=== PATIENT | female | born 1960 | race Caucasian/White ===

== ENCOUNTER 2025-07-05 13:04 | Emergency (ER) | payer MEDICAID, SELFPAY ==
[2025-07-05] VITALS (7 sets, daily range): BP systolic 110–138; BP diastolic 58–71; PULSE 73–112; RESP 16–96; TEMP 36.8–39.6; O2SAT 95–97; BMI 44.8
--- NOTE | 2025-07-05 13:07 | XR_ITS ---
EXAMINATION: AP chest single view TECHNIQUE: AP portable semiupright chest single view Date and time: July 05, 2025, 1348 hours INDICATIONS: Sepsis alert FINDINGS: Mild heart failure Mild enlargement cardiac contour Prominent vascular congestion. No lobar pneumonia. The osseous structures are demineralized IMPRESSION: Suspicious for early heart failure. No lobar pneumonia
--- NOTE | 2025-07-05 13:07 | EKG_ITS ---
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
[2025-07-05] MEDS: ACETAMINOPHEN IVPB 1,000 MG/100 ML VIAL 250 MG IV (13:25)
[2025-07-05] MEDS: RINGERS LACTATED 1000 ML 1,000 ML 999 ML IV (13:29)
--- NOTE | 2025-07-05 13:29 | EDNOTE_ITS ---
<Statement entered by Kim Lam MD - 07/11/25 14:47> As co-signing physician, I was present and available for consult prn. I concur with the plan and care as documented by the midlevel provider. ED General RME/HPI General Chief complaint: Fever Stated complaint: FEVER CHILLS Time Seen by Provider: 07/05/25 13:06 Arrival date/time: 07/05/25 13:04 CC: Weakness fever HPI onset 48 hours ago. No other family members are ill. Patient denies cough nausea vomiting, or chest pain. Took ibuprofen without relief. EMS report temperature of 102 tachycardic otherwise stable blood pressure. Related Data Home Medications ?Medication ?Instructions ?Recorded ?Confirmed amlodipine 10 mg tablet 10 mg PO QDAY ##0 11/06/13 0 02/25/20 ibuprofen 800 mg tablet 800 mg PO TID PRN Pain ##0 0 11/06/13 02/25/20 oxybutynin chloride 10 mg 10 mg PO BID ##0 03/15/16 tablet,extended release 24 hr furosemide 40 mg tablet (Lasix) 80 mg PO QAM #0 tabs 0 09/14/16 02/25/20 lisinopril 20 mg tablet 10 mg PO QDAY #0 tabs 02/25/20 albuterol sulfate 90 mcg/actuation 2 puff inhalation Q 6H 02/06/18 02/25/20 aerosol inhaler (Ventolin HFA) amitriptyline 50 mg tablet 50 mg PO HS 02/06/18 aspirin 81 mg tablet,delayed 81 mg PO QDAY 02/06/18 release (Wilda Low Dose Aspirin) citalopram 20 mg tablet 40 mg PO HS 02/06/18 0 hydroxyzine HCl 25 mg tablet 50 mg PO TID PRN Itching 02/06/18 02/25/20 loratadine 10 mg tablet (Loradamed) 10 mg PO QDAY 05/3 02/25/20 methocarbamol 500 mg tablet 500 mg PO Q6H 02/06/18 mirtazapine 45 mg tablet (Remeron) 45 mg PO HS 8 02/25/20 nitroglycerin 0.4 mg sublingual 1 tab buccal Q5MIN PRN Chest Pain 08/10/19 02/25/20 tablet atorvastatin 20 mg tablet 20 mg PO QPM 02/25/20 donepezil 5 mg tablet 5 mg PO QDAY 02/25/20 fluticasone 100 mcg-salmeterol 50 1 inh inhalation BID 02/25/20 02/25/20 mcg/dose blistr powdr for inhalation metoprolol succinate 100 mg 100 mg PO QDAY 02/25/20 tablet,extended release 24 hr omeprazole 20 mg tablet,delayed 20 mg PO QDAY 02/25/20 02/25/20 release terazosin 10 mg capsule 10 mg PO DAILY 02/25/2002/08 Previous Rx's ?Medication ?Instructions ?Recorded ondansetron HCl 4 mg tablet 4 mg PO Q8H PRN nausea and 02/26/20 (Zofran) vomiting #10 tabs azithromycin 250 mg tablet See Rx Instructions PO .COM PLEX #6 03/06/21 (Zithromax Z-Carmelo) tabs cephalexin 500 mg capsule 500 mg PO QID #20 caps 11/26 ciprofloxacin HCl 500 mg tablet 500 mg PO BID #14 tabs 07/05/25 (Cipro) Allergies Allergy/AdvReac Type Severity Reaction Status Date / Time diphenhydramine Allergy Severe CARDIAC Verified 02/25/20 20:52 ARREST fluoxetine (From Prozac) Allergy Unknown Verified 03/06/21 05:31 aripiprazole AdvReac Intermediate I DON'T Verified 02/25/20 20:52 WANT TO FUNCTION meclizine AdvReac Intermediate Drowsy Verified 02/25/20 20:52 Review of Systems Review of Systems Narrative Review of Systems: GEN: + fever, no chills, no weight loss EYES: No discharge, no visual changes, no pain HEENT: No ear pain, no congestion, no sore throat PULM: No shortness of breath, no cough, no congestion CV: No chest pain, no dyspnea on exertion, no palpitations GI: No nausea, no vomiting, no diarrhea, no pain, no constipation : No frequency, no urgency, no dysuria MUSC/SKEL: No joint pain, no back pain SKIN: No rash PSYCH: No hallucinations, no depression HEME/LYMPH: No easy bleeding or bruising tendencies NEURO: No weakness, no headache Past Medical History Past Medical History CARDIAC: Positive Cardiac Disorders, Congestive Heart Failure and Hypertension RESPIRATORY: Positive Chronic Obstructive Pulmonary Disease (COPD) and Asthma GASTROINTESTINAL: Positive Gastroesophageal Reflux Disease GENITOURINARY: Negative Renal Disease MUSCULOSKELETAL: Negative Musculoskeletal Disorders ENDOCRINE: Positive Endocrine Disorders, Diabetes Mellitus Type 1 and Diabetes Mellitus Type 2 HEMATOLOGIC: Negative Sickle Cell Disease PSYCHO/SOCIAL: Positive Psychiatric Problems, Bipolar Disorder, Depression and Anxiety OTHER HISTORY: Negative Autoimmune Disease Family History FAMILY HISTORY: Positive Family Respiratory Disorders, Family Cardiac Disorders, Family Gastrointestinal Problems, Family Cancer and Family Surgery Surgical History SURGICAL: Positive Abdominal Surgery, Hysterectomy and Tubal Ligation Social History SMOKING STATUS: Never smoker SUBSTANCE USE: does not use ED Exam Narrative Physical exam: [General: Morbidly obese not in any acute distress Head normocephalic HEENT: Eyes pupils are PERRLA EOMs are intact mouth pink dry membranes uvula is midline swallow symmetrical phonation is normal all of the subsystems of HEENT are within acceptable limits Neck is supple nontender Chest equal chest rise nontender to palpation Respiratory: Clear to auscultation no wheezes crackles or rubs CV: Rate rhythm is regular no murmurs rubs or clicks Abdomen is grossly distended secondary to body habitus soft nontender no masses positive bowel sounds all 4 quadrants Back: No CVA tenderness no spinous process tenderness from cervical spine thoracic and lumbar spine Skin: Intact no petechiae rash induration ulceration or crepitus Extremities: Moving all extremity against resistance cap refill less than 2 seconds neurosensory intact Neuro: Awake alert oriented x3 Glascow coma 15 no focal deficits] Course Quality Measures none Orders Category Date Time Status Bedside COVID-19 Antigen Test NOW Care 07/05/25 13:07 Completed Manager Outreach STAT Care 07/05/25 13:07 Completed Continuous Pulse Oximetry STAT Care 07/05/25 13:07 Completed EKG (ED ONLY) *Do not use* NOW Care 07/05/25 13:07 Completed In and Out Catheter X1PRN Care 07/05/25 13:07 Completed Insert IV NOW Care 07/05/25 13:07 Completed NPO STAT Care 07/05/25 13:07 Completed Strict Intake and Output Routine Care 07/05/25 13:07 Ordered EKG (ED Only) Stat Exams 07/05/25 13:07 Draft XR chest 1V SEPSIS PROTOCOL Stat Exams 07/05/25 13:07 Completed B-Type Natriuretic Peptide Stat Lab 07/05/25 13:34 Completed Blood Culture (Lab) Stat Lab 07/05/25 13:34 Received CBC Stat Lab 07/05/25 13:34 Completed Comprehensive Metabolic Panel Stat Lab 07/05/25 13:34 Completed Influenza A & B Rapid Panel Stat Lab 07/05/25 13:47 Completed LDH (Lactate Dehydrogenase) Stat Lab 07/05/25 13:34 Completed Lactate (Lactic Acid) Stat Lab 07/05/25 13:34 Completed Lipase Stat Lab 07/05/25 13:34 Completed Magnesium Stat Lab 07/05/25 13:34 Completed Partial Thromboplastin Time Stat Lab 07/05/25 13:34 Completed Phosphorous Stat Lab 07/05/25 13:34 Completed Procalcitonin Stat Lab 07/05/25 13:34 Completed Prothrombin Time with INR Stat Lab 07/05/25 13:34 Completed Troponin I Stat Lab 07/05/25 13:34 Completed Urinalysis, C/S if Indicated Stat Lab 07/05/25 14:00 Completed Urine Culture Stat Lab 07/05/25 14:00 Received Acetaminophen Ivpb [Ofirmev Inj] Med 07/05/25 13:09 Discontinued 1,000 mg in 100 ml IV NOW Ringers Lactated 1000 ml [Lactated Ringers] 1,000 ml Med 07/05/25 13:07 Discontinued IV 999 mls/hr cefTRIAXone/D5w 1gm IV premix [Rocephin/D5w 1gm IV Med 07/05/25 15:52 Discontinued premix] 1 gm in 50 ml IV X1 Oxygen Delivery NOW RT 07/05/25 13:07 Completed Vital Signs Vital signs: Vital Signs Temperature 103.2 F H 07/05/25 13:10 Pulse Rate 111 H 07/05/25 13:10 Respiratory Rate 20 07/05/25 13:10 Blood Pressure 125/69 07/05/25 13:10 Pulse Oximetry (%) 96 07/05/25 13:10 Oxygen Delivery Method Room Air 07/05/25 13:10 Discharge Plan Plan Patient Disposition: HOME (Self Care) Patient condition on transfer: Stable Prescriptions/Referrals Prescriptions/Med Rec: New ciprofloxacin HCl [Cipro] 500 mg tablet 500 mg PO BID Qty: 14 0RF No Action ibuprofen 800 MG tablet 800 mg PO TID PRN (Reason: Pain) Qty: 0 amlodipine 10 mg Tablet 10 mg PO QDAY Qty: 0 oxybutynin chloride 10 mg Tablet Extended Release 24 Hr 10 mg PO BID Qty: 0 furosemide [Lasix] 40 MG tablet 80 mg PO QAM Qty: 0 lisinopril 20 MG tablet 10 mg PO QDAY Qty: 0 methocarbamol 500 mg Tablet 500 mg PO Q6H aspirin [Wilda Low Dose Aspirin] 81 mg Tablet,Delayed Release (Dr/Ec) 81 mg PO QDAY amitriptyline 50 mg Tablet 50 mg PO HS citalopram 20 mg Tablet 40 mg PO HS mirtazapine [Remeron] 45 mg Tablet 45 mg PO HS hydroxyzine HCl 25 mg Tablet 50 mg PO TID PRN (Reason: Itching) loratadine [Loradamed] 10 mg Tablet 10 mg PO QDAY albuterol sulfate [Ventolin HFA] 90 mcg/actuation Hfa Aerosol Inhaler 2 puff INHALATION Q6H nitroglycerin 0.4 mg Tablet, Sublingual 1 tab BUCCAL Q5MIN PRN (Reason: Chest Pain) terazosin 10 mg Capsule 10 mg PO DAILY atorvastatin 20 mg Tablet 20 mg PO QPM donepezil 5 mg Tablet 5 mg PO QDAY fluticasone propion-salmeterol 100-50 mcg/dose Blister With Device 1 inh INHALATION BID omeprazole 20 mg Tablet,Delayed Release (Dr/Ec) 20 mg PO QDAY metoprolol succinate 100 mg Tablet Extended Release 24 Hr 100 mg PO QDAY ondansetron HCl [Zofran] 4 mg tablet 4 mg PO Q8H PRN (Reason: nausea and vomiting) Qty: 10 0RF azithromycin [Zithromax Z-Carmelo] 250 mg tablet See Rx Instructions .ROUTE .COMPLEX Qty: 6 0RF Rx Instructions: take 500 mg today (day 1), then 250 mg for 4 days (days 2-5) cephalexin 500 mg capsule 500 mg PO QID Qty: 20 0RF Referrals: Serafin Murphy MD [Primary Care Provider] - In 1 week Problem List Clinical Impression: Fever, Urinary tract infection Patient/Caregiver Discharge Instructions Education Materials: ED CYSTITIS Female Adult Additional Instructions: Take the medications as prescribed till completely gone use Tylenol or ibuprofen for fever if there is worsening of symptoms return the emergency room for further evaluation. Print Language: Luxembourgish Stand Alone Forms: Tasha Award Info., Patient Portal Info Letter JEISON/ARABELLA Supervising Physician KAVON Supervising Physician: Milo Villasenor ENP MDM Clinical Information Provided by: patient and EMS Medical Records reviewed [facility] and EMS Meds/Rx considered, not ordered None Labs/Rad/Tests considered, not ordered None Chronic Illness/Social Conditions Explain: Diabetes hypertension COPD chronic congestive heart failure bladder mesh procedure hysterectomy abdominal wall hernia repair with mesh. EKG Interpretation EKG #1: EKG Interpretation: EKG performed at 1332 shows a ventricular rate of 107 [place] interval 128 QRS of 96 QTc of 411 sinus tachycardia. Labs Labs: interpreted by me Imaging Imaging interpretation: interpreted by me Medication Administration(s) Medication Administration History Discontinued Medications Lactated Ringer's (Lactated Ringers) 1,000 mls @ 999 mls/hr IV .Q1H1M ONE Stop: 07/05/25 14:07 Last Infusion: 07/05/25 15:12 Dose: Infused Documented By: Admin: 07/05/25 13:29 Dose: 999 mls/hr Documented By: RHONDA Acetaminophen (Ofirmev Inj) 1,000 mg in 100 mls @ 250 mls/hr IV NOW ONE Stop: 07/05/25 13:32 Last Infusion: 07/05/25 13:54 Dose: Infused Documented By: Admin: 07/05/25 13:25 Dose: 250 mls/hr Documented By: RHONDA Ceftriaxone Sodium/Dextrose (Rocephin/D5w 1gm Iv Premix) 1 gm in 50 mls @ 100 mls/hr IV X1 ONE Stop: 07/05/25 16:21 Last Infusion: 07/05/25 17:23 Dose: Infused Documented By: Admin: 07/05/25 16:46 Dose: 100 mls/hr Documented By: RHONDA
[2025-07-05 13:39] LABS: Lactate (Lactic Acid) 1.4 mMol/L (0.4-2.0)
[2025-07-05 13:49] LABS: Basophils # (Auto) 0.0 Thou/mm3 (0.0-0.2); Basophils % (Auto) 0 % (0-2.5); Eosinophils # (Auto) 0.1 Thou/mm3 (0.0-0.5); Eosinophils % (Auto) 1 % (0-10); Hematocrit 37.9 % (36.0-46.0); Hemoglobin 12.2 g/dL (12.0-16.0); Immature Granulocytes Auto 0.04 Thou/mm3 (0.00-0.00); Lymphocytes # (Auto) 0.5 Thou/mm3 (1.0-4.8); Lymphocytes % (Auto) 5 % (10-50); Mean Corpuscular HGB Conc 32.2 g/dl (31.0-37.0); Mean Corpuscular Hemoglobin 27.8 pg (25.0-35.0); Mean Corpuscular Volume 86 fL (80-100); Monocytes # (Auto) 0.2 Thou/mm3 (0.0-0.8); Monocytes % (Auto) 2 % (0-12); Neutrophils # (Auto) 9.9 Thou/mm3 (1.8-7.7); Neutrophils % (Auto) 92 % (37-80); Nucleated Red Blood Cell # 0.00 Thou/mm3 (0.00-0.00); Nucleated Red Blood Cell % 0 /100 WBC (0); Platelet Count 190 Thou/mm3 (140-440); RDW Standard Deviation 43.1 fL (36.4-46.3); Red Blood Count 4.39 Miln/mm3 (4.00-5.20); White Blood Count 10.8 Thou/mm3 (3.6-11.0)
[2025-07-05 14:03] LABS: INR 1.1 (0.9-1.3); Partial Thromboplastin Time 25.1 Seconds (22.0-36.0); Prothrombin Time 11.4 Seconds (9.0-12.2)
[2025-07-05 14:11] LABS: B-Type Natriuretic Peptide 40 pg/mL (0-100)
[2025-07-05 14:14] LABS: Albumin, Serum 4.7 gm/dL (3.4-4.8); Albumin/Globulin Ratio 2.0 (1.2-2.2); Alkaline Phosphatase 87 U/L (46-116); Anion Gap 12 (7-16); Aspartate Amino Transferase 16 U/L (0-34); BUN/Creatinine Ratio 15 Ratio (12-20); Bilirubin,Total 1.4 mg/dL (0.3-1.2); Blood Urea Nitrogen 20 mg/dL (9-23); Calcium 9.5 mg/dL (8.3-10.6); Calcium (Corrected) 9.5 mg/dL (8.5-10.1); Carbon Dioxide 22.3 mMol/L (20.0-31.0); Chloride 108 mMol/L (98-107); Creatinine (Component) 1.3 mg/dL (0.6-1.3); Estimated Creatinine Clearance 62.1 mL/min (>60); Globulin 2.3 gm/dL (2.3-3.5); Glucose 129 mg/dL (74-106); LDH (Lactate Dehydrogenase) 173 U/L (120-246); Lipase 29 U/L (12-53); Magnesium 1.5 mg/dL (1.6-2.6); Osmolality,Calculated 287 (275-295); Phosphorous 2.0 mg/dL (2.4-5.1); Potassium 4.0 mMol/L (3.4-5.1); Sodium 142 mMol/L (136-145); Total Protein 7.0 gm/dL (5.7-8.2); Troponin I < 0.002 ng/mL (0.0-0.045); eGFR 46 See Note
[2025-07-05 14:23] LABS: Alanine Aminotransferase 8 U/L (10-49); Procalcitonin 0.63 ng/ml (0.0-0.49)
[2025-07-05 14:31] LABS: Collection Type, Urine Clean Catch
[2025-07-05 14:46] LABS: Influenza A Ag Negative; Influenza B Ag Negative
[2025-07-05 14:57] LABS: Bacteria,Urine 3+; Bilirubin,Urine Negative (Negative); Blood,Urine Trace (Negative); Clarity,Urine Turbid (Clear/Hazy); Color,Urine Yellow (Lt Yel-Yel); Glucose, Urine Negative (Negative); Ketones,Urine Trace (Negative); Leukocyte Esterase,Urine Positive (Negative); Nitrite,Urine Positive (Negative); PH,Urine 6.0 (5.0-7.0); Protein,Urine Trace (Neg - Trace); RBC,Urine 1 /hpf (0-3); Specific Gravity,Urine 1.022 (1.001-1.035); Squamous Epithelial Cell,Urine 1 /hpf (0-5); Urobilinogen,Urine Negative mg/dL (0.0-1.0); WBC,Urine 34 /hpf (0-5)
[2025-07-05 14:58] LABS: Culture Indicated,Urine Yes
[2025-07-05] MEDS: cefTRIAXone/D5w 1gm IV premix 1 GM/50 ML BAG IV (16:46)
== END 2025-07-05 17:46 | disposition home or self-care (01) ==
PROVIDERS: Registered Nurse General Practice; Emergency Provider Emergency Medicine; PCP Family Medicine
DX: N30.90 Cystitis, unspecified without hematuria (principal); E11.9 Type 2 diabetes mellitus without complications; I11.0 Hypertensive heart disease with heart failure; J44.9 Chronic obstructive pulmonary disease, unspecified; Z79.51 Long term (current) use of inhaled steroids
CPT/HCPCS: 36415; 51701; 71045; 80053; 81001; 83605; 83615; 83690; 83735; 83880; 84100; 84145; 84484; 85025; 85610; 85730; 87040; 87077; 87086; 87186; 87502; 87811; 93005; 99284; J0131; J0696; J7120

== ENCOUNTER 2025-08-29 09:49 | Emergency (ER) | payer MEDICAID, SELFPAY ==
[2025-08-29 10:07] VITALS: BP 160/95; PULSE 87; RESP 20; TEMP 36.8; O2SAT 96; BMI 45.4
--- NOTE | 2025-08-29 10:28 | XR_ITS ---
Examination: Abdomen sonogram, Limited Date and time of exam: August 29, 2025, 11:25 a.m. INDICATIONS: Epigastric pain abdominal pain nausea vomiting beginning 2 days ago Technique: Real-time whitaker scale transabdominal sonographic images of the upper abdomen obtained. Findings: Normal gallbladder Normal common bile duct 0.5 cm Pancreatic head 3.0 cm Liver 14.5 cm fatty infiltration no focal liver lesions Normal hepatopetal portal venous flow Patent IVC IMPRESSION: Normal gallbladder Normal common bile duct
--- NOTE | 2025-08-29 10:30 | PD.EDNV ---
Nausea/Vomit./Diarrhea-RME/HPI General Chief complaint: Nausea/Vomiting/Diarrhea Stated complaint: Vomiting since last night, abdominal pain Time Seen by Provider: 08/29/25 10:05 Arrival date/time: 08/29/25 09:49 This is a 65-year-old female that comes into the emergency room with complaints of abdominal pain nausea vomiting that started last night. Patient denies fever or chills. Patient denies urinary symptoms but more of her pain seems to be in her right flank. Patient states that she was recently treated for a UTI not too long ago. Patient has a history of depression, anxiety, bipolar disorder, COPD, CHF. Related Data Home Medications ?Medication ?Instructions ?Recorded ?Confirmed ibuprofen 800 mg tablet 800 mg PO TID PRN Pain ##0 11/06/13 08/30/25 oxybutynin chloride 10 mg 10 mg PO BID ##0 03/15/16 08/30/25 tablet,extended release 24 hr furosemide 40 mg tablet (Lasix) 40 mg PO QAM #0 tabs 09/14/16 08/30/25 albuterol sulfate 90 mcg/actuation 2 puff inhalation Q6H 02/06/18 08/30/25 aerosol inhaler (Ventolin HFA) aspirin 81 mg tablet,delayed 81 mg PO QDAY 02/06/18 08/30/25 release (Wilda Low Dose Aspirin) hydroxyzine HCl 25 mg tablet 50 mg PO TID PRN Itching 02/06/18 08/30/25 loratadine 10 mg tablet (Loradamed) 10 mg PO QDAY 02/06/18 08/30/25 mirtazapine 45 mg tablet (Remeron) 45 mg PO HS 02/06/18 08/30/25 nitroglycerin 0.4 mg sublingual 1 tab buccal Q5MIN PRN Chest Pain 08/10/19 08/30/25 tablet atorvastatin 20 mg tablet 40 mg PO QPM 02/25/20 08/30/25 donepezil 5 mg tablet 5 mg PO QDAY 02/25/20 08/30/25 metoprolol succinate 100 mg 100 mg PO QDAY 02/25/20 08/30/25 tablet,extended release 24 hr omeprazole 20 mg tablet,delayed 20 mg PO QDAY 02/25/20 08/30/25 release terazosin 10 mg capsule 10 mg PO DAILY 02/25/20 08/30/25 diclofenac sodium 1 % topical gel 2 g topical QID PRN pain 08/30/25 08/30/25 docusate sodium 100 mg capsule 100 mg PO QDAY PRN constipation 08/30/25 08/30/25 ergocalciferol (vitamin D2) 1,250 1,250 mcg PO QWEEK 08/30/25 08/30/25 mcg (50,000 unit) capsule escitalopram oxalate 10 mg tablet 10 mg PO QDAY 08/30/25 08/30/25 meloxicam 7.5 mg tablet 7.5 mg PO QDAY 08/30/25 08/30/25 montelukast 10 mg tablet 10 mg PO QDAY 08/30/25 08/30/25 sertraline 100 mg tablet 100 mg PO QDAY 08/30/25 08/30/25 Previous Rx's ?Medication ?Instructions ?Recorded polyethylene glycol 3350 17 4 g PO QDAY #238 grams 09/01/25 gram/dose oral powder (Miralax) Allergies Allergy/AdvReac Type Severity Reaction Status Date / Time diphenhydramine Allergy Severe CARDIAC Verified 08/29/25 09:54 ARREST fluoxetine (From Prozac) Allergy Unknown Verified 08/29/25 09:54 aripiprazole AdvReac Intermediate I DON'T Verified 08/29/25 09:54 WANT TO FUNCTION meclizine AdvReac Intermediate Drowsy Verified 08/29/25 09:54 Review of Systems Review of Systems Systems Reviewed: All systems reviewed, normal except as documented Past Medical History Past Medical History CARDIAC: Positive Cardiac Disorders, Congestive Heart Failure and Hypertension RESPIRATORY: Positive Chronic Obstructive Pulmonary Disease (COPD) and Asthma GASTROINTESTINAL: Positive Gastroesophageal Reflux Disease GENITOURINARY: Negative Renal Disease MUSCULOSKELETAL: Negative Musculoskeletal Disorders ENDOCRINE: Positive Endocrine Disorders, Diabetes Mellitus Type 1 and Diabetes Mellitus Type 2 HEMATOLOGIC: Negative Sickle Cell Disease PSYCHO/SOCIAL: Positive Psychiatric Problems, Bipolar Disorder, Depression and Anxiety OTHER HISTORY: Negative Autoimmune Disease Family History FAMILY HISTORY: Positive Family Respiratory Disorders, Family Cardiac Disorders, Family Gastrointestinal Problems, Family Cancer and Family Surgery Surgical History SURGICAL: Positive Abdominal Surgery, Hysterectomy and Tubal Ligation Social History SMOKING STATUS: Never smoker SUBSTANCE USE: does not use ED Exam Narrative Physical exam: VITAL SIGNS: Reviewed. GENERAL APPEARANCE: Alert and interactive, follows commands, no acute distress HEAD AND FACE: Non-traumatic. ENT: PERRL, conjuctiva pink and clear, eyelid no trauma, Mucous membrane moist. NECK: Supple, nontender, no nuchal rigidity. CHEST: No tenderness, no crepitus, no paradoxical movement, no retractions. LUNGS: breathing even and unlabored HEART: Regular rate, cap refill less than 2 seconds ABDOMEN: Soft, nondistended, no guarding, nontender to palpation NEUROLOGICAL: Gross motor function intact sensory function intact, Appropriate for age. MUSCULOSKELETAL: low back nontender, full range of motion. EXTREMITIES: No redness no swelling no skin breakdown on bilateral foot and leg. Distal neurovascular status intact bilateral foot SKIN: Color pink, dry, no rash, no lacerations, no abrasions, no contusions. Course Quality Measures none Orders Category Date Time Status US abdomen limited Stat Exams 08/29/25 10:28 Completed CBC Stat Lab 08/29/25 11:06 Completed Comprehensive Metabolic Panel Stat Lab 08/29/25 11:06 Completed Drug Screen,Urine Stat Lab 08/29/25 10:36 Completed Lipase Stat Lab 08/29/25 11:06 Completed Urinalysis, C/S if Indicated Stat Lab 08/29/25 10:36 Completed HYDROcodone*/APAP 5/325 [[place] 5/325] Med 08/29/25 10:28 Discontinued 1 tab PO X1 ONE HYDROcodone*/APAP 5/325 [[place] 5/325] Med 08/29/25 13:45 Discontinued 1 tab PO X1 ONE Ondansetron Odt [Zofran Odt] Med 08/29/25 10:28 Discontinued 4 mg PO X1 ONE Ondansetron Odt [Zofran Odt] Med 08/29/25 13:45 Discontinued 4 mg PO X1 ONE Vital Signs Vital signs: Vital Signs Temperature 98.3 F 08/29/25 10:07 Pulse Rate 87 08/29/25 10:07 Respiratory Rate 20 08/29/25 10:07 Blood Pressure 160/95 H 08/29/25 10:07 Pulse Oximetry (%) 96 08/29/25 10:07 Oxygen Delivery Method Room Air 08/29/25 10:07 Nausea/Vomiting/Diarrhea MDM Narrative MDM Narrative:: us abdomen Findings: Normal gallbladder Normal common bile duct 0.5 cm Pancreatic head 3.0 cm Liver 14.5 cm fatty infiltration no focal liver lesions Normal hepatopetal portal venous flow Patent IVC IMPRESSION: Normal gallbladder Normal common bile duct Today patient had ultrasound. Exam appeared unremarkable. I explained to patient at length that if there was continued pain to this area or worsened to come back to ED or see primary provider for more xrays or further testing such as CT scan or MRI. ultrasounds are not perfect and sometimes serial films needed. Patient verbalized understanding. Patient states they will follow up with primary provider in 1-2 days or come back to ED if symptoms change or worsen. Because nothing was found in this ultrasound and labs for the most part are unremarkable I did talk to patient about a CT scan of abdomen and pelvis. At this time patient states she feels better and she would like to go home patient reports that she does not want a CT scan at this time and she will come back to the emergency room if her symptoms change or worsen and at that time she will get a CT scan of her abdomen and pelvis. Patient was given [place] and Zofran earlier and feels better. Patient verbalized understanding and feels comfortable plan of care. Patient data External records reviewed:: [facility] previous records Clinical information provided by:: patient Social determinants that could affect healthcare access:: none Patient has the following chronic illnesses:: see note How is presenting disease/condition affected by chronic disease/condition?: no chronic disease Evaluation data The following diagnostics were reviewed and interpreted by me:: lab results and radiology exam(s) Lab and/or radiology exams considered but not ordered:: see note Interpretation Summary: see note Medications / Prescriptions Medications / Prescriptions considered but not ordered:: see note Medication administrations:: Medication Administration History Discontinued Medications Hydrocodone Bitart/Acetaminophen (Hydrocodone/Apap 5/325 Tablet) 1 tab PO X1 ONE Stop: 08/29/25 10:29 Last Admin: 08/29/25 10:39 Dose: 1 tab Documented By: LIV Hydrocodone Bitart/Acetaminophen (Hydrocodone/Apap 5/325 Tablet) 1 tab PO X1 ONE Stop: 08/29/25 13:46 Last Admin: 08/29/25 13:59 Dose: 1 tab Documented By: LIV Ondansetron HCl (Ondansetron Odt 4 Mg Tabrap) 4 mg PO X1 ONE; Protocol Stop: 08/29/25 10:29 Last Admin: 08/29/25 10:39 Dose: 4 mg Documented By: LIV Ondansetron HCl (Ondansetron Odt 4 Mg Tabrap) 4 mg PO X1 ONE; Protocol Stop: 08/29/25 13:46 Last Admin: 08/29/25 13:58 Dose: 4 mg Documented By: LIV see [facility] Consultations Consultation(s) initiated? (list below): No Diagnosis Nausea Differential Diagnosis: gastroenteritis, dehydration and other (bowel obstruction, uti, cholecyctitis ) Most likely diagnosis given after review of the tests above:: s Admission Indicated Admission indicated?: not indicated Admission Request Was there a request for admission?: No Disposition Plan Disposition Plan: Discharge Discharge Attestation Discharge Attestation: The patient and all family members were given an opportunity to ask questions and understood the discharge instructions. Discharge instructions specifically effects, indications for sooner follow up or return to the emergency department, and the expected course of current diagnosis. Patient condition: Stable Discharge Plan Plan Patient Disposition: HOME (Self Care) Patient condition on transfer: Stable Prescriptions/Referrals Prescriptions/Med Rec: No Action ibuprofen 800 MG tablet 800 mg PO TID PRN (Reason: Pain) Qty: 0 oxybutynin chloride 10 mg Tablet Extended Release 24 Hr 10 mg PO BID Qty: 0 furosemide [Lasix] 40 MG tablet 40 mg PO QAM Qty: 0 aspirin [Wilda Low Dose Aspirin] 81 mg Tablet,Delayed Release (Dr/Ec) 81 mg PO QDAY mirtazapine [Remeron] 45 mg Tablet 45 mg PO HS hydroxyzine HCl 25 mg Tablet 50 mg PO TID PRN (Reason: Itching) loratadine [Loradamed] 10 mg Tablet 10 mg PO QDAY albuterol sulfate [Ventolin HFA] 90 mcg/actuation Hfa Aerosol Inhaler 2 puff INHALATION Q6H nitroglycerin 0.4 mg Tablet, Sublingual 1 tab BUCCAL Q5MIN PRN (Reason: Chest Pain) terazosin 10 mg Capsule 10 mg PO DAILY atorvastatin 20 mg Tablet 40 mg PO QPM donepezil 5 mg Tablet 5 mg PO QDAY omeprazole 20 mg Tablet,Delayed Release (Dr/Ec) 20 mg PO QDAY metoprolol succinate 100 mg Tablet Extended Release 24 Hr 100 mg PO QDAY montelukast 10 mg tablet 10 mg PO QDAY Patient Comments: TAKE ONE TABLET BY MOUTH AT BEDTIME FOR BREATHING meloxicam 7.5 mg tablet 7.5 mg PO QDAY Patient Comments: TAKE ONE TABLET BY MOUTH EVERY DAY WITH FOOD escitalopram oxalate 10 mg tablet 10 mg PO QDAY Patient Comments: TAKE ONE TABLET BY MOUTH EVERY DAY ergocalciferol (vitamin D2) 1,250 mcg (50,000 unit) capsule 1,250 mcg PO QWEEK Patient Comments: TAKE ONE CAPSULE BY MOUTH EVERY WEEK VITAMIN docusate sodium 100 mg capsule 100 mg PO QDAY PRN (Reason: constipation) Patient Comments: TAKE ONE CAPSULE BY MOUTH EVERY DAY NEEDED FOR CONSTIPATION sertraline 100 mg tablet 100 mg PO QDAY Patient Comments: TAKE ONE TABLET BY MOUTH EVERY DAY IN THE MORNING diclofenac sodium 1 % gel 2 g TOPICAL QID PRN (Reason: pain) Patient Comments: APPLY ONE - TWO GRAM EXTERNALLY FOUR TIMES DAILY NEEDED FOR PAIN polyethylene glycol 3350 [Miralax] 17 gram/dose powder 4 g PO QDAY Qty: 238 0RF Referrals: Serafin Murphy MD [Primary Care Provider] - In 1 week Problem List Clinical Impression: Abdominal pain, Vomiting Patient/Caregiver Discharge Instructions Discharge Activity: activity as tolerated Education Materials: Abdominal Pain, ED Vomiting (Adult) Additional Instructions: Follow up with primary provider in 1-2 days. Come back to ED if symptoms change or worsen Print Language: Citizen Of [place] Stand Alone Forms: Tasha Award Info., Patient Portal Info Letter PA/SETTLEMENT PROCESSOR Supervising Physician JEISON/ARABELLA Supervising Physician: lisset
[2025-08-29] MEDS: ONDANSETRON ODT 4 MG TABRAP PO ×2 (10:39→13:58)
[2025-08-29] MEDS: HYDROcodone/APAP 5/325 TABLET 1 TAB PO ×2 (10:39→13:59)
[2025-08-29 10:59] LABS: Collection Type, Urine Voided
[2025-08-29 11:17] LABS: Basophils # (Auto) 0.0 Thou/mm3 (0.0-0.2); Basophils % (Auto) 0 % (0-2.5); Eosinophils # (Auto) 0.1 Thou/mm3 (0.0-0.5); Eosinophils % (Auto) 1 % (0-10); Hematocrit 43.4 % (36.0-46.0); Hemoglobin 13.9 g/dL (12.0-16.0); Immature Granulocytes Auto 0.03 Thou/mm3 (0.00-0.00); Lymphocytes # (Auto) 1.4 Thou/mm3 (1.0-4.8); Lymphocytes % (Auto) 13 % (10-50); Mean Corpuscular HGB Conc 32.0 g/dl (31.0-37.0); Mean Corpuscular Hemoglobin 27.5 pg (25.0-35.0); Mean Corpuscular Volume 86 fL (80-100); Monocytes # (Auto) 0.5 Thou/mm3 (0.0-0.8); Monocytes % (Auto) 5 % (0-12); Neutrophils # (Auto) 9.2 Thou/mm3 (1.8-7.7); Neutrophils % (Auto) 81 % (37-80); Nucleated Red Blood Cell # 0.00 Thou/mm3 (0.00-0.00); Nucleated Red Blood Cell % 0 /100 WBC (0); Platelet Count 313 Thou/mm3 (140-440); RDW Standard Deviation 42.6 fL (36.4-46.3); Red Blood Count 5.06 Miln/mm3 (4.00-5.20); White Blood Count 11.3 Thou/mm3 (3.6-11.0)
[2025-08-29 11:29] LABS: Bacteria,Urine Rare; Bilirubin,Urine Negative (Negative); Blood,Urine Negative (Negative); Budding Yeast,Urine Present; Clarity,Urine Clear (Clear/Hazy); Color,Urine Yellow (Lt Yel-Yel); Culture Indicated,Urine Not Indicated; Glucose, Urine Negative (Negative); Ketones,Urine Negative (Negative); Leukocyte Esterase,Urine Negative (Negative); Nitrite,Urine Negative (Negative); PH,Urine 6.5 (5.0-7.0); Protein,Urine 1+ (Neg - Trace); RBC,Urine < 1 /hpf (0-3); Specific Gravity,Urine 1.026 (1.001-1.035); Squamous Epithelial Cell,Urine 10 /hpf (0-5); Urobilinogen,Urine Negative mg/dL (0.0-1.0); WBC,Urine < 1 /hpf (0-5)
[2025-08-29 11:39] LABS: Amphetamine/Methamp Scrn,U Negative (Negative); Barbiturate Screen,Urine Negative (Negative); Benzodiazepines Screen,Urine Negative (Negative); Benzoylecgonine Screen, Ur Negative (Negative); Fentanyl Screen,Urine Negative (Negative); Opiate Screen,Urine Negative (Negative); THC Screen,Urine Negative (Negative)
[2025-08-29 11:42] LABS: Alanine Aminotransferase 11 U/L (10-49); Albumin, Serum 5.0 gm/dL (3.4-4.8); Albumin/Globulin Ratio 1.6 (1.2-2.2); Alkaline Phosphatase 113 U/L (46-116); Anion Gap 13 (7-16); Aspartate Amino Transferase 18 U/L (0-34); BUN/Creatinine Ratio 18 Ratio (12-20); Bilirubin,Total 0.7 mg/dL (0.3-1.2); Blood Urea Nitrogen 18 mg/dL (9-23); Calcium 9.9 mg/dL (8.3-10.6); Calcium (Corrected) 9.9 mg/dL (8.5-10.1); Carbon Dioxide 27.4 mMol/L (20.0-31.0); Chloride 103 mMol/L (98-107); Creatinine (Component) 1.0 mg/dL (0.6-1.3); Estimated Creatinine Clearance 81.4 mL/min (>60); Globulin 3.2 gm/dL (2.3-3.5); Glucose 156 mg/dL (74-106); Lipase 29 U/L (12-53); Osmolality,Calculated 289 (275-295); Potassium 4.2 mMol/L (3.4-5.1); Sodium 143 mMol/L (136-145); Total Protein 8.2 gm/dL (5.7-8.2); eGFR > 60 See Note
== END 2025-08-29 14:56 | disposition home or self-care (01) ==
PROVIDERS: Nurse Practitioner Family; Emergency Provider Emergency Medicine; PCP Family Medicine
DX: R10.13 Epigastric pain (principal); R11.2 Nausea with vomiting, unspecified
CPT/HCPCS: 36415; 76705; 80053; 80307; 81001; 83690; 85025; 99283; Q0162; A9270

== ENCOUNTER 2025-08-29 18:16 | Inpatient (IN) | payer MEDICAID, SELFPAY ==
[2025-08-29 18:28] VITALS: BP 175/91; PULSE 95; RESP 19; TEMP 36.9; O2SAT 94
[2025-08-29 18:32] VITALS: PULSE 86; RESP 18; O2SAT 94
--- NOTE | 2025-08-29 18:55 | XR_ITS ---
Examination: CT abdomen with intravenous contrast CT pelvis with intravenous contrast 2-D coronal reconstructions 2-D sagittal reconstructions Date and time of exam: August 29, 2025, 2006 hours, comparison February 25, 2020 INDICATIONS: Onset abdominal pain today CTDI:vol (mGy) 24.0 DLP: (mGycm) 1504 Technique: Multiple axial sections of the abdomen and pelvis have been obtained. 64 slice high-resolution scanner used. 3 mm axial sections have been obtained, post intravenous injection 60 cc [id number] 2-D sagittal, coronal reconstructions obtained. Low dose protocols were performed. One or more of the following dose reduction techniques were used; automated exposure control, adjustment of the mA and/or KV according to patient size, use of iterative reconstruction technique. Findings: Mild pericardial effusion 3 mm No visualized liver or splenic lesion No gallstones No pancreatic or adrenal mass Moderate renal scar formation Multiple fluid distended small bowel loops Normal appendix No hernia defect 6 cm mass contiguous with the fundus of the uterus Bladder intact Advanced degenerative disc disease L5-S1 IMPRESSION: Multiple fluid distended small bowel loops, consider early small bowel obstruction, suggest Gastrografin small bowel series follow-up 6 cm mass contiguous with the fundus of the uterus, recommend pelvic sonography follow-up
--- NOTE | 2025-08-29 18:57 | PD.EDABDPN ---
ED Abdominal Pain RME/HPI General Chief Complaint: Nausea/Vomiting/Diarrhea Stated complaint: NAUSEA/VOMITING Time seen by provider: 08/29/25 18:46 Arrival date/time: 08/29/25 18:16 RME / HPI RME / HPI narrative: 65-year-old female who was seen here and evaluated earlier in the day for vomiting and abdominal pain which started last night. She denies any blood in the vomitus. She has had normal bowel movements. She had a gallbladder ultrasound here earlier today which was unremarkable. Lab work is unremarkable. Patient continued to vomit so she presents back to the emergency room for further treatment and evaluation. Patient denies fevers. No melena or hematochezia. Related Data Home Medications ?Medication ?Instructions ?Recorded ?Confirmed amlodipine 10 mg tablet 10 mg PO QDAY ##0 11/06/13 02/25/20 ibuprofen 800 mg tablet 800 mg PO TID PRN Pain ##0 11/06/13 02/25/20 oxybutynin chloride 10 mg 10 mg PO BID ##0 03/15/16 02/25/20 tablet,extended release 24 hr furosemide 40 mg tablet (Lasix) 80 mg PO QAM #0 tabs 09/14/16 02/25/20 lisinopril 20 mg tablet 10 mg PO QDAY #0 tabs 09/14/16 02/25/20 albuterol sulfate 90 mcg/actuation 2 puff inhalation Q6H 02/06/18 02/25/20 aerosol inhaler (Ventolin HFA) amitriptyline 50 mg tablet 50 mg PO HS 02/06/18 02/25/20 aspirin 81 mg tablet,delayed 81 mg PO QDAY 02/06/18 02/25/20 release (Wilda Low Dose Aspirin) citalopram 20 mg tablet 40 mg PO HS 02/06/18 02/25/20 hydroxyzine HCl 25 mg tablet 50 mg PO TID PRN Itching 02/06/18 02/25/20 loratadine 10 mg tablet (Loradamed) 10 mg PO QDAY 02/06/18 02/25/20 methocarbamol 500 mg tablet 500 mg PO Q6H 02/06/18 02/25/20 mirtazapine 45 mg tablet (Remeron) 45 mg PO HS 02/06/18 02/25/20 nitroglycerin 0.4 mg sublingual 1 tab buccal Q5MIN PRN Chest Pain 08/10/19 02/25/20 tablet atorvastatin 20 mg tablet 20 mg PO QPM 02/25/20 02/25/20 donepezil 5 mg tablet 5 mg PO QDAY 02/25/20 02/25/20 fluticasone 100 mcg-salmeterol 50 1 inh inhalation BID 02/25/20 02/25/20 mcg/dose blistr powdr for inhalation metoprolol succinate 100 mg 100 mg PO QDAY 02/25/20 02/25/20 tablet,extended release 24 hr omeprazole 20 mg tablet,delayed 20 mg PO QDAY 02/25/20 02/25/20 release terazosin 10 mg capsule 10 mg PO DAILY 02/25/20 02/25/20 Previous Rx's ?Medication ?Instructions ?Recorded ondansetron HCl 4 mg tablet 4 mg PO Q8H PRN nausea and 02/26/20 (Zofran) vomiting #10 tabs azithromycin 250 mg tablet See Rx Instructions PO .COMPLEX #6 03/06/21 (Zithromax Z-Carmelo) tabs cephalexin 500 mg capsule 500 mg PO QID #20 caps 11/26/22 ciprofloxacin HCl 500 mg tablet 500 mg PO BID #14 tabs 07/05/25 (Cipro) ondansetron 4 mg disintegrating 4 mg PO Q6H PRN nausea and 08/29/25 tablet vomiting #10 tabs Allergies Allergy/AdvReac Type Severity Reaction Status Date / Time diphenhydramine Allergy Severe CARDIAC Verified 08/29/25 09:54 ARREST fluoxetine (From Prozac) Allergy Unknown Verified 08/29/25 09:54 aripiprazole AdvReac Intermediate I DON'T Verified 08/29/25 09:54 WANT TO FUNCTION meclizine AdvReac Intermediate Drowsy Verified 08/29/25 09:54 Review of Systems Review of Systems Systems Reviewed: All systems reviewed, normal except as documented ED Exam Narrative Physical exam: Generally patient is alert in mild distress secondary to pain, obese female. Heart regular rate and rhythm, lungs clear to auscultation equal bilaterally, abdomen is obese soft somewhat tympanic to the upper portion of the abdomen and tender to the suprapubic region. Neurologic exam shows the patient have a Padmini Coma Scale of 15 without focal motor deficit, skin is cool pale and dry Course Quality Measures none Orders Category Date Time Status CT Screening NOW Care 08/29/25 18:55 Active Insert NG / OG tube NOW Care 08/29/25 21:[address] abdomen pelvis w con Stat Exams 08/29/25 18:55 Completed CBC Stat Lab 08/29/25 19:35 Completed Metoclopramide Inj [Reglan Inj] Med 08/29/25 18:54 Discontinued 10 mg IVP X1 ONE Midazolam Inj [Versed Inj] Med 08/29/25 21:09 Once 4 mg IVP X1 ONE Morphine* Inj Med 08/29/25 18:54 Discontinued 4 mg IVP X1 ONE Sodium Chloride 0.9% 1000 ml [Ns] 1,000 ml Med 08/29/25 18:54 Discontinued IV 999 mls/hr Vital Signs Vital signs: Vital Signs Temperature 98.5 F 08/29/25 18:28 Pulse Rate 95 08/29/25 18:28 Respiratory Rate 19 08/29/25 18:28 Blood Pressure 175/91 H 08/29/25 18:28 Pulse Oximetry (%) 94 L 08/29/25 18:28 Oxygen Delivery Method Room Air 08/29/25 18:28 Abdominal Pain MDM MDM Narrative MDM Narrative:: White count this morning was 11,000 and tonight is 13,000. Electrolytes from this morning were unremarkable. Gallbladder ultrasound from this morning was negative. CT scan done of the abdomen and pelvis with IV contrast showed evidence for multiple dilated loops of small bowel significant for a possible early small bowel obstruction. Here in the emergency room patient was hydrated with a liter normal saline given morphine 4 mg IV, Reglan 10 mg IV. NG tube will be placed. I spoke with general surgeon Dr. Medellin who will consult on the patient. She asked for the hospitalist to admit. I spoke with the hospitalist and patient will be admitted to the hospital for further treatment and evaluation. Patient's abdominal surgeries in the past consists of bladder suspension surgery, bilateral tubal ligation, possible transabdominal hysterectomy and . Patient data External records reviewed:: Other (specify) Clinical information provided by:: none Social determinants that could affect healthcare access:: none Patient has the following chronic illnesses:: None How is presenting disease/condition affected by chronic disease/condition?: no chronic disease Evaluation data The following diagnostics were reviewed and interpreted by me:: other (specify) Lab and/or radiology exams considered but not ordered:: None Interpretation Summary: None Medications / Prescriptions Medications or Prescriptions considered but not ordered:: None Medication administrations:: Medication Administration History Midazolam HCl (Midazolam Inj 1 Mg/Ml Vial 2 Ml) 4 mg IVP X1 ONE Stop: 08/29/25 21:10 Discontinued Medications Sodium Chloride (Ns) 1,000 mls @ 999 mls/hr IV .Q1H1M ONE Stop: 08/29/25 19:54 Last Admin: 08/29/25 19:37 Dose: 999 mls/hr Documented By: NAYELY Metoclopramide HCl (Metoclopramide Inj 5 Mg/Ml Vial 2 Ml) 10 mg IVP X1 ONE; Protocol Stop: 08/29/25 18:55 Last Admin: 08/29/25 19:39 Dose: 10 mg Documented By: NAYELY Morphine Sulfate (Morphine Sulf Inj 4 Mg/Ml Vial) 4 mg IVP X1 ONE Stop: 08/29/25 18:55 Last Admin: 08/29/25 19:39 Dose: 4 mg Documented By: NAYELY None Consultations Consultation(s) initiated? (list below): Yes Diagnosis Differential diagnosis abdominal pain: other Most likely diagnosis given after review of the tests above:: None Admission Indicated Admission indicated?: indicated Admission Request Was there a request for admission?: Yes Admission Attestation Admission request attestation: Discussed case with [] from Hospitalist service regarding admission. Discussed patients ED course, exam findings, labs, and radiology results. The Hospitalist [agrees,declines] to accept the patient for admission. Disposition Plan Disposition Plan: Admit Critical Care Time Critical Care Time Critical Care Time: Yes Total Critical Care Time (min.): 35 Attestation: Excluding other billable procedures Discharge Plan Plan Patient Disposition: Admit Acute Care w/in Hospital Prescriptions/Referrals Prescriptions/Med Rec: No Action ibuprofen 800 MG tablet 800 mg PO TID PRN (Reason: Pain) Qty: 0 amlodipine 10 mg Tablet 10 mg PO QDAY Qty: 0 oxybutynin chloride 10 mg Tablet Extended Release 24 Hr 10 mg PO BID Qty: 0 furosemide [Lasix] 40 MG tablet 80 mg PO QAM Qty: 0 lisinopril 20 MG tablet 10 mg PO QDAY Qty: 0 methocarbamol 500 mg Tablet 500 mg PO Q6H aspirin [Wilda Low Dose Aspirin] 81 mg Tablet,Delayed Release (Dr/Ec) 81 mg PO QDAY amitriptyline 50 mg Tablet 50 mg PO HS citalopram 20 mg Tablet 40 mg PO HS mirtazapine [Remeron] 45 mg Tablet 45 mg PO HS hydroxyzine HCl 25 mg Tablet 50 mg PO TID PRN (Reason: Itching) loratadine [Loradamed] 10 mg Tablet 10 mg PO QDAY albuterol sulfate [Ventolin HFA] 90 mcg/actuation Hfa Aerosol Inhaler 2 puff INHALATION Q6H nitroglycerin 0.4 mg Tablet, Sublingual 1 tab BUCCAL Q5MIN PRN (Reason: Chest Pain) terazosin 10 mg Capsule 10 mg PO DAILY atorvastatin 20 mg Tablet 20 mg PO QPM donepezil 5 mg Tablet 5 mg PO QDAY fluticasone propion-salmeterol 100-50 mcg/dose Blister With Device 1 inh INHALATION BID omeprazole 20 mg Tablet,Delayed Release (Dr/Ec) 20 mg PO QDAY metoprolol succinate 100 mg Tablet Extended Release 24 Hr 100 mg PO QDAY ondansetron HCl [Zofran] 4 mg tablet 4 mg PO Q8H PRN (Reason: nausea and vomiting) Qty: 10 0RF azithromycin [Zithromax Z-Carmelo] 250 mg tablet See Rx Instructions .ROUTE .COMPLEX Qty: 6 0RF Rx Instructions: take 500 mg today (day 1), then 250 mg for 4 days (days 2-5) cephalexin 500 mg capsule 500 mg PO QID Qty: 20 0RF ciprofloxacin HCl [Cipro] 500 mg tablet 500 mg PO BID Qty: 14 0RF ondansetron 4 mg tablet,disintegrating 4 mg PO Q6H PRN (Reason: nausea and vomiting) Qty: 10 0RF Referrals: Serafin Murphy MD [Primary Care Provider] - In 1 week Problem List Clinical Impression: SBO (small bowel obstruction) Patient/Caregiver Discharge Instructions Print Language: [place] Stand Alone Forms: Tasha Award Info., Patient Portal Info Letter
[2025-08-29] MEDS: SODIUM CHLORIDE 0.9% 1000 ML 1,000 ML 999 ML IV (19:37)
[2025-08-29] MEDS: MORPHINE SULF INJ 4 MG/ML VIAL IVP (19:39)
[2025-08-29] MEDS: METOCLOPRAMIDE INJ 5 MG/ML VIAL 2 ML 10 MG IVP (19:39)
[2025-08-29 19:45] VITALS: BP 179/97; PULSE 84; RESP 18; TEMP 36.6; O2SAT 96
[2025-08-29 20:03] LABS: Basophils # (Auto) 0.0 Thou/mm3 (0.0-0.2); Basophils % (Auto) 0 % (0-2.5); Eosinophils # (Auto) 0.0 Thou/mm3 (0.0-0.5); Eosinophils % (Auto) 0 % (0-10); Hematocrit 42.6 % (36.0-46.0); Hemoglobin 13.6 g/dL (12.0-16.0); Immature Granulocytes Auto 0.04 Thou/mm3 (0.00-0.00); Lymphocytes # (Auto) 1.1 Thou/mm3 (1.0-4.8); Lymphocytes % (Auto) 8 % (10-50); Mean Corpuscular HGB Conc 31.9 g/dl (31.0-37.0); Mean Corpuscular Hemoglobin 27.1 pg (25.0-35.0); Mean Corpuscular Volume 85 fL (80-100); Monocytes # (Auto) 0.7 Thou/mm3 (0.0-0.8); Monocytes % (Auto) 5 % (0-12); Neutrophils # (Auto) 11.5 Thou/mm3 (1.8-7.7); Neutrophils % (Auto) 86 % (37-80); Nucleated Red Blood Cell # 0.00 Thou/mm3 (0.00-0.00); Nucleated Red Blood Cell % 0 /100 WBC (0); Platelet Count 301 Thou/mm3 (140-440); RDW Standard Deviation 42.4 fL (36.4-46.3); Red Blood Count 5.02 Miln/mm3 (4.00-5.20); White Blood Count 13.4 Thou/mm3 (3.6-11.0)
--- NOTE | 2025-08-29 22:07 | ECHO_ITS ---
Patient Info Name: Ashleigh Marin Age: 65 years : 1960 Gender: Female Ht: 170 cm Wt: 131 kg BSA: 2.56 m2 BP: 139 / 85 mmHg HR: 75 bpm Exam Date: 08/30/2025 7:16 AM Admit Date: 08/29/2025 Site: [facility] Room Number: [id number] Patient Status: I Technical Quality: Poor Exam Type: CA echo doppler complete [employer] Process Equipment Operator: Inez Arteaga Ordering Physician: Roberto Younger Study Info Indications History of HFpEF - Primary Location: [id number] Left Ventricular Outflow Tract Name Value Normal LVOT 2D LVOT Diameter 1.9 cm LVOT Doppler LVOT Peak Velocity 173 cm/s LVOT Mean Gradient 7 mmHg LVOT VTI 41 cm LVOT VTI/AV VTI Ratio 1.1 LVOT Stroke Volume 115 ml Pulmonic Valve Name Value Normal PV Doppler PV Peak Velocity 114 cm/s Mitral Valve Name Value Normal MV Doppler MV Mean Gradient 3 mmHg MV Decel Izard 439 cm/s2 MV PHT 56 ms MV Area (PHT) 3.9 cm2 4.0-5.0 MV Area (Cont Eq VTI) 2.2 cm2 MV Diastolic Function MV E Peak Velocity 85 cm/s MV A Peak Velocity 136 cm/s MV E/A 0.6 MV Annular TDI MV Septal e' Velocity 5.8 cm/s MV E/e' (Septal) 14.7 MV Lateral e' Velocity 7.1 cm/s MV E/e' (Lateral) 12.0 MV e' Average 6.42 cm/s MV E/e' (Average) 13.4 Tricuspid Valve Name Value Normal TV Regurgitation Doppler TR Peak Velocity 213 cm/s Estimated PAP/RSVP RA Pressure 8 mmHg <=5 PA Systolic Pressure 26 mmHg <36 RV Systolic Pressure 26 mmHg <36 Aortic Valve Name Value Normal AV 2D/MM AV Cusp Sep (MM) 1.6 cm AV Doppler AV Peak Velocity 147 cm/s AV Mean Gradient 5 mmHg AV VTI 38 cm AV Area (Cont Eq VTI) 3.1 cm2 >=3.0 AV Area (Cont Eq Jeremi) 3.3 cm2 AV DI (Jeremi) 1.18 AV Regurgitation 2D LVOT Area 2.8 cm2 Ventricles Name Value Normal LV Dimensions 2D/MM IVS Diastolic Thickness (2D) 0.7 cm 0.6-0.9 LVID Diastole (2D) 5.0 cm 3.8-5.2 LVIW Diastolic Thickness (2D) 1.0 cm 0.6-0.9 LVID Systole (2D) 3.3 cm 2.2-3.5 LVOT Diameter 1.9 cm LV Mass (2D Cubed) 146.83 g 67.00-162.00 LV Mass Index (2D Cubed) 57 g/m2 43-95 Relative Wall Thickness (2D) 0.40 <=0.42 IVS/LVIW Diastolic Thickness (2D) 0.70 0.00-1.50 LV Fractional Shortening/Ejection Fraction 2D/MM LV Fractional Shortening (2D) 34 % 27-45 LV EF (2D Teichholz) 63 % Left Ventricle Left ventricular chamber dimension is normal. Left ventricular systolic function is normal with visually estimated ejection fraction of 55-60%. There is normal geometry noted in the left ventricle. Left ventricular segmental wall motion is normal. There is grade I diastolic dysfunction in the left ventricle. Right Ventricle Right ventricular chamber dimension is normal. Right ventricular systolic function is normal. Left Atrium Left atrial chamber dimension is mildly enlarged. Right Atrium Right atrial chamber dimension is mildly enlarged. Aortic Valve The aortic valve is trileaflet. There is mild aortic valve sclerosis. There is no aortic valve stenosis with a peak velocity of 147 cm/s, mean gradient of 5 mmHg, and aortic valve area of 3.1 cm2. There is mild aortic valve regurgitation. Pulmonic Valve The pulmonic valve is normal. There is no pulmonic valve stenosis. There is no pulmonic regurgitation. Mitral Valve The mitral valve has thickened leaflets. There is no mitral valve stenosis. There is mild mitral valve regurgitation. Tricuspid Valve The tricuspid valve leaflets are normal. There is no tricuspid valve stenosis. There is mild tricuspid valve regurgitation. No pulmonary hypertension, estimated pulmonary arterial systolic pressure is 26 mmHg and systemic blood pressure of 139 mmHg in systole. Pericardium/Pleural The pericardium appears normal. There is no pericardial effusion. No pleural effusion visualized. Inferior Vena Cava Not well visualized inferior vena cava with >50% collapse upon inspiration consistent with normal right atrial pressure, 8 mmHg. Aorta The aortic measurements are indexed to age and body surface area. The aortic root at the sinus of Valsalva is not well visualized. The prox ascending aorta is not well visualized. Summary 1. Left ventricle size is normal and systolic function is normal. Estimated ejection fraction is 55-60%. There is grade I diastolic dysfunction. 2. Right ventricle chamber size is normal and systolic function is normal. Estimated RVSP is 26 mmHg. 3. There is mild aortic valve sclerosis with no stenosis and trace aortic regurgitation. Mild MAC. Mild MR and TR. 4. The left atrium is mildly enlarged. The right atrium is mildly enlarged. Report Signatures Finalized by Shade Starr on 08/30/2025 12:47 PM
--- NOTE | 2025-08-29 22:21 | ESHP_ITS ---
<Statement entered by Dhaval Miranda MD - 08/30/25 05:14> 65-year-old female with significant past medical history of diabetes mellitus not on treatment, hypertension, COPD not on home oxygen, asthma, GERD, depression, anxiety, CHF, dementia, bladder sling surgery, hernia repair admitted to the hospital with chief complaints of abdominal pain, nausea and vomiting since 2 days. Denies fever, nausea, diarrhea, shortness of breath, any other associated symptoms. Reported that she had history of constipation and takes laxatives at home. Bilious vomitus without any hematemesis, coffee- ground. Vitals at the time of admission are significant for blood pressure 175/91 mmHg, pulse rate 95 bpm, SpO2 94% with room air. On physical examination, noted to have diffuse abdominal tenderness with mild distention, ejection systolic murmur in the aortic area and pulmonary area, intertrigo under the breasts and the abdominal fold. Bowel sounds are heard, hyperactive. Labs at the time of admission are significant for WBC 11.3. Abdomen/pelvis CT showed multiple fluid distended small bowel loops, early small bowel obstruction. 6 centimeter mass contiguous with the fundus of the uterus. Pelvic ultrasonography was done that did not show any mass. EKG showed normal sinus rhythm with poor R wave progression. Patient is admitted in the hospital for small bowel obstruction. NG tube was placed, connected to low intermittent suction. Will start Gastrografin series once the suction amount decreases to less than 30 mL/h. Ordered echocardiogram. Started on nebulizations as needed, labetalol as needed as patient cannot take oral antihypertensives, started on IV fluids NS at 75 mL/h and pain management as needed. I have personally seen and examined the patient, agree with residents assessment and plan Patient plan of care was discussed with the attending physician, Dr. Alice Miranda, PGY2 <Statement entered by Billy Jenkins DO - 08/30/25 00:48> Patient was seen and examined by me. After the review of the clinical data, I agree that the patient will need an admission on inpatient status for small bowel obstruction. Plan of care discussed with patient who is in agreement. I Billy Jenkins DO, attest that I was physically present for villatoro portions of evaluation, examined the patient, reviewed the labs and imaging, and discussed the plan of care and management with the IM residents team. I agree with the findings and plans documented above. Documentation for date of: 08/29/25 [facility] History of Present Illness History of present illness: HPI: 65-year-old female past medical history of hypertension, HFpEF, COPD not on home oxygen, depression, anxiety, bipolar, who presented to the ED in the evening of 08/29/2025 with chief complaint of nausea vomiting. The patient had 4 episodes of vomiting 24 hours ago and 3 episodes the morning of presentation. She denied hematemesis, describes her vomitus as multiple different colors. Patient also endorsed associated generalized left-sided abdominal pain. She was found to have multiple fluid distended small bowel loops on CT abdomen pelvis. Of note the patient presented to the ED earlier in the day with complaints of abdominal pain and nausea that started the night before. She was treated with Reubens and Zofran. Scan was withheld. It was reported that the patient had pain in her right flank but denied any urinary symptoms at the time. She also denies urinary symptoms on presentation this visit. Patient was admitted for small bowel obstruction. ED Course: * Significant vitals on arrival: BP 175/91, saturating 94% on room air, remainder of vitals within normal parameters * Significant labs: WBC 13.4 * Imaging: CTAP showed mild pericardial effusion 3 mm, multiple fluid distended small bowel loops, 6 cm mass contiguous with the fundus of the uterus * Urine: Budding yeast, 10 squamous epithelial cells, 1+ protein * ED intervention: Patient received a liter of fluids, 4 mg morphine, 10 mg metoclopramide, and 4 mg midazolam for placement of NG tube. History: * Past medical history: As above in HPI * Surgical history: Tubal ligation, C-sections, hernia repair * Social history: Denies alcohol or illicit drug use, long history of secondhand smoke exposure though never smoked cigarettes. Allergies: * Diphenhydramine: Causes cardiac arrest * Fluoxetine * Aripiprazole: Causes patient to not want to function * Meclizine: Causes drowsiness Home Medications: (Pending Med Rec, patient mentions that she is prescribed multiple medications that she is not taking because it causes her to urinate too often) * Pregabalin 100 mg every 12 hours * Atorvastatin 40 mg daily * Docusate 100 mg as needed * Vitamin D supplement * Escitalopram 10 mg daily * Ibuprofen 600 mg every 8 hours as needed * Meloxicam 7.5 mg daily * Montelukast 10 mg at bedtime * Omeprazole 20 mg daily * Semaglutide weekly * Sertraline 100 mg daily CODE STATUS: DNR/DNI Review of Systems Review of Systems Narrative Review of Systems: Review of Systems: * General: Denies fevers, admits to chills. * HEENT: Denies headache, admits to nasal congestion, denies sore throat. * Cardiac: Denies chest pain or palpitations. * Pulmonary: Admits to mild shortness of breath, denies cough. * GI: 7 episodes total of vomiting in the past 24 hours, associated nausea, no hematemesis. Denies diarrhea, constipation, melena, or hematochezia. * : Denies dysuria, hematuria, frequency, or urgency. * MSK: Admits to right knee pain. * Neuro: Denies weakness, numbness, vision changes, or speech difficulty. Exam Vital Signs Temp Pulse Resp BP Pulse Ox O2 Del Method 98 F 84 18 179/97 H 96 Room Air 08/29/25 19:45 08/29/25 19:45 08/29/25 19:45 08/29/25 19:45 08/29/25 19:45 08/29/25 19:45 Narrative Exam General: Obese lady. Awake and in no acute distress. Neurologic: GCS 15. Alert and oriented x3, no gross neurological deficit, and patient able to move all 4 extremities. HEENT: Normocephalic, atraumatic, mucous membranes moist. Pupils reactive to light. Heart: Grade 2 out of 6 systolic ejection murmur left sternal border, right sternal border. Regular rate and rhythm, normal S1 and S2, no murmurs. Lungs: Clear to auscultation bilaterally with no wheezing or crackles. Abdomen: Obese, distended, pain on light palpation of the entire left abdominal area. Negative bowel sounds on auscultation. No guarding. Extremities: 1+ pitting edema below the knees bilaterally. 2+ radial and dorsalis pedis pulses bilaterally. Skin: Warm. Dry. No rash or ecchymoses. Results: Labs 08/29/25 19:35 Labs: Short CBC 08/29/25 Range/Units 19:35 WBC 13.4 H (3.6-11.0) Thou/mm3 Hgb 13.6 (12.0-16.0) g/dL Hct 42.6 (36.0-46.0) % Plt Count 301 (140-440) Thou/mm3 Quality Measures Quality Measures none Medications Home Medications and Allergies Home Medications ?Medication ?Instructions ?Recorded ?Confirmed ?Type ibuprofen 800 mg tablet 800 mg PO TID PRN Pain ##0 0 11/06/13 08/30/25 History oxybutynin chloride 10 mg 10 mg PO BID ##0 03/15/16 History tablet,extended release 24 hr furosemide 40 mg tablet (Lasix) 40 mg PO QAM #0 tabs 0 09/14/16 08/30/25 History albuterol sulfate 90 mcg/actuation 2 puff inhalation Q 6H 02/06/18 08/30/25 History aerosol inhaler (Ventolin HFA) aspirin 81 mg tablet,delayed 81 mg PO QDAY 02/06/18 History release (Wilda Low Dose Aspirin) hydroxyzine HCl 25 mg tablet 50 mg PO TID PRN Itching 02/06/18 08/30/25 History loratadine 10 mg tablet (Loradamed) 10 mg PO QDAY 01/1008/30/25 History mirtazapine 45 mg tablet (Remeron) 45 mg PO HS 8 08/30/25 History nitroglycerin 0.4 mg sublingual 1 tab buccal Q5MIN PRN Chest Pain 08/10/19 08/30/25 History tablet atorvastatin 20 mg tablet 40 mg PO QPM 02/25/20 History donepezil 5 mg tablet 5 mg PO QDAY 02/25/20 History metoprolol succinate 100 mg 100 mg PO QDAY 02/25/20 History tablet,extended release 24 hr omeprazole 20 mg tablet,delayed 20 mg PO QDAY 02/25/20 08/30/25 History release terazosin 10 mg capsule 10 mg PO DAILY 02/25/2008/11 History diclofenac sodium 1 % topical gel 2 g topical QID PRN pain 08/30/25 08/30/25 History docusate sodium 100 mg capsule 100 mg PO QDAY PRN cons tipation 08/30/25 08/30/25 History ergocalciferol (vitamin D2) 1,250 1,250 mcg PO QWEEK 1 10/31/24 08/30/25 History mcg (50,000 unit) capsule escitalopram oxalate 10 mg tablet 10 mg PO QDAY 08/30/25 History meloxicam 7.5 mg tablet 7.5 mg PO QDAY 08/30/2508/11 History montelukast 10 mg tablet 10 mg PO QDAY 08/30/2508/30 History sertraline 100 mg tablet 100 mg PO QDAY 08/30/2508/11 History Allergies Allergy/AdvReac Type Severity Reaction Status Date / Time diphenhydramine Allergy Severe CARDIAC Verified 08/29/25 09:54 ARREST fluoxetine (From Prozac) Allergy Unknown Verified 08/29/25 09:54 aripiprazole AdvReac Intermediate I DON'T Verified 08/29/25 09:54 WANT TO FUNCTION meclizine AdvReac Intermediate Drowsy Verified 08/29/25 09:54 Visit Medications Acetaminophen (Acetaminophen 325 Mg Tablet) 650 mg PO Q6H PRN PRN Reason: Fever >100.4 Stop: 09/28/25 21:59 Sodium Chloride (Ns) 1,000 mls @ 75 mls/hr IV .[id number] ALF Stop: 09/28/25 22:07 Discontinued Medications Sodium Chloride (Ns) 1,000 mls @ 999 mls/hr IV .[id number] ONE Stop: 08/29/25 19:54 Last Infusion: 08/29/25 21:58 Dose: Infused Metoclopramide HCl (Metoclopramide Inj 5 Mg/Ml Vial 2 Ml) 10 mg IVP X1 ONE; Protocol Stop: 08/29/25 18:55 Last Admin: 08/29/25 19:39 Dose: 10 mg Midazolam HCl (Midazolam Inj 1 Mg/Ml Vial 2 Ml) 4 mg IVP X1 ONE Stop: 08/29/25 21:10 Morphine Sulfate (Morphine Sulf Inj 4 Mg/Ml Vial) 4 mg IVP X1 ONE Stop: 08/29/25 18:55 Last Admin: 08/29/25 19:39 Dose: 4 mg Assessment & Plan Plan Summary: 65-year-old female past medical history of hypertension, HFpEF, COPD not on home oxygen, depression, anxiety, bipolar, who presented to the ED in the evening of 08/29/2025 with chief complaint of nausea vomiting. The patient had 4 episodes of vomiting 24 hours ago and 3 episodes the morning of presentation. She was found to have multiple fluid distended small bowel loops on CT abdomen pelvis. Patient was admitted for small bowel obstruction. #Acute Small Bowel Obstruction * Patient presented after 7 episodes total of vomiting in the past 24 hours * Patient denied hematemesis, feeling faint or dizzy, hemoglobin appropriate * Patient presented earlier in the day to the ED after episodes of vomiting, Abdominal ultrasound at that time showed a normal gallbladder normal common bile duct, 14.5 cm fatty infiltrated liver with no focal lesions, CT abdomen pelvis was withheld and the patient was treated with Reubens and Zofran * Upon representation CTAP showed multiple fluid distended small bowel loops * Consider the cause of SBO as secondary to multiple abdominal surgeries that may have caused adhesions * NG tube was placed in ED Plan: * N.p.o. * Low intermittent suction for NG tube, if after first hour there is less than 50 mL of volume and no significant active secretions then will initiate small bowel series * Morphine 2 mg IV push every 6 hours for pain scale 4-10, Tylenol for pain scale 1-3 * Zofran 4 mg IV push every 4 hours for nausea vomiting * Maintenance fluids 75 mL/h normal saline due to being n.p.o. * Replete electrolytes as needed, patient has no known history of A-fib, so potassium and magnesium goal will be within normal lab parameters of 3.4 and 1.6 respectively #Hypertension Stage II * Patient presented with BP 175/91 * Patient is not been taking her hypertension medications due to nausea and vomiting for the past day before presentation Plan: * As needed labetalol for SBP > 175, HR > 65 * Need to keep patient strictly n.p.o. due to high level of secretions * Once patient is able to tolerate oral, then consider restarting home blood pressure medications #History of HFpEF * Echo on 08/11/2019 showed severe left ventricular hypertrophy, and normal left ventricular diastolic filling pattern, EF 60-65% * Patient mentioned that she is prescribed Lasix but does not take it because it makes her urinate too much Plan: * Repeat echo ordered * Patient needs to be on maintenance fluids due to being n.p.o. for hydration, will do gentle rate of 75 mL/h #COPD * Patient mentioned she has a history of COPD * Never smoked and is not on home oxygen however received years of secondhand smoke * Patient endorsed mild shortness of breath, may be secondary to vomiting versus dry heaving * Chest x-ray pending official read, does not appear to be hyperinflated, opacities in the left base and right base Plan: * No direct invention at this time * Oxygen as needed saturation goal over 96% #Depression? #Anxiety? #Bipolar? * Per patient history and chart review * Patient takes amitriptyline, citalopram Plan: * Pending med rec * Consider restarting home medications once patient able to tolerate oral #Incidental Finding 6 cm Mass Contiguous with Fundus of Uterus * CTAP showed a 6 cm mass continuous with a loop fundus of the uterus * Pelvic sonography follow-up was recommended Plan: * No direct intervention at this time #Incidental Finding Small Pericardial Effusion * CTAP showed mild pericardial effusion of 3 mm * Patient endorsed no chest pain Plan: * No direct intervention at this time * Follow-up echo results Hospital Maintenance: DVT ppx: SCDs GI ppx: Pantoprazole 40 mg IV daily Diet: Strict n.p.o. Lines: Peripheral IVs, NG tube Code status: DNR/DNI Dispo: Telemetry monitoring floor, admitted for small bowel obstruction, NG tube placed in ED, low intermittent suction, pending small bowel series. Patient was seen and discussed with my attending physician Dr. Alice VELA and my senior resident Dr. Ruben POLANCO PGY-2. Roberto Younger DO PGY-1.
--- NOTE | 2025-08-29 22:21 | PD.RESHP ---
Documentation for date of: 08/29/25 [facility] History of Present Illness History of present illness: HPI: 65-year-old female past medical history of hypertension, HFpEF, COPD not on home oxygen, depression, anxiety, bipolar, who presented to the ED in the evening of 08/29/2025 with chief complaint of nausea vomiting. The patient had 4 episodes of vomiting 24 hours ago and 3 episodes the morning of presentation. She denied hematemesis, describes her vomitus as multiple different colors. Patient also endorsed associated generalized left-sided abdominal pain. She was found to have multiple fluid distended small bowel loops on CT abdomen pelvis. Of note the patient presented to the ED earlier in the day with complaints of abdominal pain and nausea that started the night before. She was treated with Nerstrand and Zofran. Scan was withheld. It was reported that the patient had pain in her right flank but denied any urinary symptoms at the time. She also denies urinary symptoms on presentation this visit. Patient was admitted for small bowel obstruction. ED Course: Significant vitals on arrival: BP 175/91, saturating 94% on room air, remainder of vitals within normal parameters Significant labs: WBC 13.4 Imaging: CTAP showed mild pericardial effusion 3 mm, multiple fluid distended small bowel loops, 6 cm mass contiguous with the fundus of the uterus Urine: Budding yeast, 10 squamous epithelial cells, 1+ protein ED intervention: Patient received a liter of fluids, 4 mg morphine, 10 mg metoclopramide, and 4 mg midazolam for placement of NG tube. History: Past medical history: As above in HPI Surgical history: Tubal ligation, C-sections, hernia repair Social history: Denies alcohol or illicit drug use, long history of secondhand smoke exposure though never smoked cigarettes. Allergies: Diphenhydramine: Causes cardiac arrest Fluoxetine Aripiprazole: Causes patient to not want to function Meclizine: Causes drowsiness Home Medications: (Pending Med Rec, patient mentions that she is prescribed multiple medications that she is not taking because it causes her to urinate too often) Pregabalin 100 mg every 12 hours Atorvastatin 40 mg daily Docusate 100 mg as needed Vitamin D supplement Escitalopram 10 mg daily Ibuprofen 600 mg every 8 hours as needed Meloxicam 7.5 mg daily Montelukast 10 mg at bedtime Omeprazole 20 mg daily Semaglutide weekly Sertraline 100 mg daily CODE STATUS: DNR/DNI Review of Systems Review of Systems Narrative Review of Systems: Review of Systems: General: Denies fevers, admits to chills. HEENT: Denies headache, admits to nasal congestion, denies sore throat. Cardiac: Denies chest pain or palpitations. Pulmonary: Admits to mild shortness of breath, denies cough. GI: 7 episodes total of vomiting in the past 24 hours, associated nausea, no hematemesis. Denies diarrhea, constipation, melena, or hematochezia. : Denies dysuria, hematuria, frequency, or urgency. MSK: Admits to right knee pain. Neuro: Denies weakness, numbness, vision changes, or speech difficulty. Exam Vital Signs Temp Pulse Resp BP Pulse Ox O2 Del Method 98 F 84 18 179/97 H 96 Room Air 08/29/25 19:45 08/29/25 19:45 08/29/25 19:45 08/29/25 19:45 08/29/25 19:45 08/29/25 19:45 Narrative Exam General: Obese lady. Awake and in no acute distress. Neurologic: GCS 15. Alert and oriented x3, no gross neurological deficit, and patient able to move all 4 extremities. HEENT: Normocephalic, atraumatic, mucous membranes moist. Pupils reactive to light. Heart: Grade 2 out of 6 systolic ejection murmur left sternal border, right sternal border. Regular rate and rhythm, normal S1 and S2, no murmurs. Lungs: Clear to auscultation bilaterally with no wheezing or crackles. Abdomen: Obese, distended, pain on light palpation of the entire left abdominal area. Negative bowel sounds on auscultation. No guarding. Extremities: 1+ pitting edema below the knees bilaterally. 2+ radial and dorsalis pedis pulses bilaterally. Skin: Warm. Dry. No rash or ecchymoses. Results: Labs 08/29/25 19:35 Labs: Short CBC 08/29/25 Range/Units 19:35 WBC 13.4 H (3.6-11.0) Thou/mm3 Hgb 13.6 (12.0-16.0) g/dL Hct 42.6 (36.0-46.0) % Plt Count 301 (140-440) Thou/mm3 Quality Measures Quality Measures none Medications Home Medications and Allergies Home Medications ?Medication ?Instructions ?Recorded ?Confirmed ?Type ibuprofen 800 mg tablet 800 mg PO TID PRN Pain ##0 11/06/13 08/30/25 History oxybutynin chloride 10 mg 10 mg PO BID ##0 03/15/16 08/30/25 History tablet,extended release 24 hr furosemide 40 mg tablet (Lasix) 40 mg PO QAM #0 tabs 09/14/16 08/30/25 History albuterol sulfate 90 mcg/actuation 2 puff inhalation Q6H 02/06/18 08/30/25 History aerosol inhaler (Ventolin HFA) aspirin 81 mg tablet,delayed 81 mg PO QDAY 02/06/18 08/30/25 History release (Wilda Low Dose Aspirin) hydroxyzine HCl 25 mg tablet 50 mg PO TID PRN Itching 02/06/18 08/30/25 History loratadine 10 mg tablet (Loradamed) 10 mg PO QDAY 02/06/18 08/30/25 History mirtazapine 45 mg tablet (Remeron) 45 mg PO HS 02/06/18 08/30/25 History nitroglycerin 0.4 mg sublingual 1 tab buccal Q5MIN PRN Chest Pain 08/10/19 08/30/25 History tablet atorvastatin 20 mg tablet 40 mg PO QPM 02/25/20 08/30/25 History donepezil 5 mg tablet 5 mg PO QDAY 02/25/20 08/30/25 History metoprolol succinate 100 mg 100 mg PO QDAY 02/25/20 08/30/25 History tablet,extended release 24 hr omeprazole 20 mg tablet,delayed 20 mg PO QDAY 02/25/20 08/30/25 History release terazosin 10 mg capsule 10 mg PO DAILY 02/25/20 08/30/25 History diclofenac sodium 1 % topical gel 2 g topical QID PRN pain 08/30/25 08/30/25 History docusate sodium 100 mg capsule 100 mg PO QDAY PRN constipation 08/30/25 08/30/25 History ergocalciferol (vitamin D2) 1,250 1,250 mcg PO QWEEK 08/30/25 08/30/25 History mcg (50,000 unit) capsule escitalopram oxalate 10 mg tablet 10 mg PO QDAY 08/30/25 08/30/25 History meloxicam 7.5 mg tablet 7.5 mg PO QDAY 08/30/25 08/30/25 History montelukast 10 mg tablet 10 mg PO QDAY 08/30/25 08/30/25 History sertraline 100 mg tablet 100 mg PO QDAY 08/30/25 08/30/25 History Allergies Allergy/AdvReac Type Severity Reaction Status Date / Time diphenhydramine Allergy Severe CARDIAC Verified 08/29/25 09:54 ARREST fluoxetine (From Prozac) Allergy Unknown Verified 08/29/25 09:54 aripiprazole AdvReac Intermediate I DON'T Verified 08/29/25 09:54 WANT TO FUNCTION meclizine AdvReac Intermediate Drowsy Verified 08/29/25 09:54 Visit Medications Acetaminophen (Acetaminophen 325 Mg Tablet) 650 mg PO Q6H PRN PRN Reason: Fever >100.4 Stop: 09/28/25 21:59 Sodium Chloride (Ns) 1,000 mls @ 75 mls/hr IV .[id number] ALF Stop: 09/28/25 22:07 Discontinued Medications Sodium Chloride (Ns) 1,000 mls @ 999 mls/hr IV .Q1H1M ONE Stop: 08/29/25 19:54 Last Infusion: 08/29/25 21:58 Dose: Infused Metoclopramide HCl (Metoclopramide Inj 5 Mg/Ml Vial 2 Ml) 10 mg IVP X1 ONE; Protocol Stop: 08/29/25 18:55 Last Admin: 08/29/25 19:39 Dose: 10 mg Midazolam HCl (Midazolam Inj 1 Mg/Ml Vial 2 Ml) 4 mg IVP X1 ONE Stop: 08/29/25 21:10 Morphine Sulfate (Morphine Sulf Inj 4 Mg/Ml Vial) 4 mg IVP X1 ONE Stop: 08/29/25 18:55 Last Admin: 08/29/25 19:39 Dose: 4 mg Assessment & Plan Plan Summary: 65-year-old female past medical history of hypertension, HFpEF, COPD not on home oxygen, depression, anxiety, bipolar, who presented to the ED in the evening of 08/29/2025 with chief complaint of nausea vomiting. The patient had 4 episodes of vomiting 24 hours ago and 3 episodes the morning of presentation. She was found to have multiple fluid distended small bowel loops on CT abdomen pelvis. Patient was admitted for small bowel obstruction. #Acute Small Bowel Obstruction Patient presented after 7 episodes total of vomiting in the past 24 hours Patient denied hematemesis, feeling faint or dizzy, hemoglobin appropriate Patient presented earlier in the day to the ED after episodes of vomiting, Abdominal ultrasound at that time showed a normal gallbladder normal common bile duct, 14.5 cm fatty infiltrated liver with no focal lesions, CT abdomen pelvis was withheld and the patient was treated with Nerstrand and Zofran Upon representation CTAP showed multiple fluid distended small bowel loops Consider the cause of SBO as secondary to multiple abdominal surgeries that may have caused adhesions NG tube was placed in ED Plan: N.p.o. Low intermittent suction for NG tube, if after first hour there is less than 50 mL of volume and no significant active secretions then will initiate small bowel series Morphine 2 mg IV push every 6 hours for pain scale 4-10, Tylenol for pain scale 1-3 Zofran 4 mg IV push every 4 hours for nausea vomiting Maintenance fluids 75 mL/h normal saline due to being n.p.o. Replete electrolytes as needed, patient has no known history of A-fib, so potassium and magnesium goal will be within normal lab parameters of 3.4 and 1.6 respectively #Hypertension Stage II Patient presented with BP 175/91 Patient is not been taking her hypertension medications due to nausea and vomiting for the past day before presentation Plan: As needed labetalol for SBP > 175, HR > 65 Need to keep patient strictly n.p.o. due to high level of secretions Once patient is able to tolerate oral, then consider restarting home blood pressure medications #History of HFpEF Echo on 08/11/2019 showed severe left ventricular hypertrophy, and normal left ventricular diastolic filling pattern, EF 60-65% Patient mentioned that she is prescribed Lasix but does not take it because it makes her urinate too much Plan: Repeat echo ordered Patient needs to be on maintenance fluids due to being n.p.o. for hydration, will do gentle rate of 75 mL/h #COPD Patient mentioned she has a history of COPD Never smoked and is not on home oxygen however received years of secondhand smoke Patient endorsed mild shortness of breath, may be secondary to vomiting versus dry heaving Chest x-ray pending official read, does not appear to be hyperinflated, opacities in the left base and right base Plan: No direct invention at this time Oxygen as needed saturation goal over 96% #Depression? #Anxiety? #Bipolar? Per patient history and chart review Patient takes amitriptyline, citalopram Plan: Pending med rec Consider restarting home medications once patient able to tolerate oral #Incidental Finding 6 cm Mass Contiguous with Fundus of Uterus CTAP showed a 6 cm mass continuous with a loop fundus of the uterus Pelvic sonography follow-up was recommended Plan: No direct intervention at this time #Incidental Finding Small Pericardial Effusion CTAP showed mild pericardial effusion of 3 mm Patient endorsed no chest pain Plan: No direct intervention at this time Follow-up echo results Hospital Maintenance: DVT ppx: SCDs GI ppx: Pantoprazole 40 mg IV daily Diet: Strict n.p.o. Lines: Peripheral IVs, NG tube Code status: DNR/DNI Dispo: Telemetry monitoring floor, admitted for small bowel obstruction, NG tube placed in ED, low intermittent suction, pending small bowel series. Patient was seen and discussed with my attending physician Dr. Alice VELA and my senior resident Dr. Ruben POLANCO PGY-2. Roberto Younger DO PGY-1.
[2025-08-29] MEDS: MIDAZOLAM INJ 1 MG/ML VIAL 2 ML 4 MG IVP (22:29)
[2025-08-29] MEDS: SODIUM CHLORIDE 0.9% 1000 ML 1,000 ML 75 ML IV (22:30)
--- NOTE | 2025-08-29 22:49 | XR_ITS ---
EXAMINATION: AP chest single view TECHNIQUE: AP portable upright chest single view Date and time: August 29, 2025, 10:54 p.m., comparison July 05, 2025 INDICATIONS: Post orogastric tube placement FINDINGS: Orogastric tube in the stomach, tip below the level of the film Mild prominence left ventricle Poor definition lateral portion left hemidiaphragm consider mild pneumonia Moderate thoracic dextroscoliosis IMPRESSION: Orogastric tube in the stomach tip below the level of the film
[2025-08-30] VITALS (12 sets, daily range): BP systolic 139–184; BP diastolic 72–100; PULSE 69–94; RESP 14–95; TEMP 36.3–37.2; O2SAT 90–98; BMI 45.0
--- NOTE | 2025-08-30 | XR_ITS ---
Examination: Pelvic ultrasound, transabdominal, complete Technique: Transabdominal ultrasound of the pelvis performed using grayscale imaging Date and time of exam: August 30, 2025, 0209 hours INDICATIONS: Mass on imaging of the abdomen, 6 cm mass contiguous with the fundus of the uterus today on CT examination FINDINGS: No visualization of uterus or ovaries, removed according to the patient No pelvic mass demonstrated IMPRESSION: Recommend transvaginal pelvic sonography follow-up
--- NOTE | 2025-08-30 00:18 | PC.NURSE ---
report was called to kevin and pt taken to rm [id number]
--- NOTE | 2025-08-30 00:34 | EKG_ITS ---
[facility] Test Date: 2025-08-30 Pat Name: KIMBERLEY ESCALERA [facility] Gender[facility] Female [employer] M[employer]: DANYEL : 1960 Requested By: Roberto Younger Order Number: [id number] Reading MD: Roberto Younger Measurements Intervals [place] Rate: 76 P: 2 MT: 148 QRS: -1 QRSD: 96 T: 29 QT: 421 QTc: 476 Interpretive Statements SINUS RHYTHM POSSIBLE INFERIOR MYOCARDIAL INFARCTION , PROBABLY OLD Compared to ECG 07/05/2025 13:32:27 Myocardial infarct finding now present Sinus tachycardia no longer present /store/S0/[id number]/ecg/[id number].pdf
[2025-08-30 00:40] LABS: Lactate (Lactic Acid) 1.3 mMol/L (0.4-2.0)
[2025-08-30] MEDS: MORPHINE SULF INJ 4 MG/ML VIAL 2 MG IVP ×3 (00:40→22:23)
[2025-08-30] MEDS: CLOTRIMAZOLE CR 1% 30 GM TUBE TOP ×3 (01:05→22:12)
[2025-08-30 01:08] LABS: Procalcitonin 0.07 ng/ml (0.0-0.49); Troponin I < 0.020 ng/mL (0.0-0.045)
--- NOTE | 2025-08-30 02:23 | PC.NURSE ---
MD Younger made aware that pt still has a lot of NG output at this time, pt has 250cc output, per MD to keep NG tube connected to suction.
--- NOTE | 2025-08-30 03:55 | PRELIM_ITS ---
Pelvic ultrasound (transabdominal). August 30, 2025 at 0209 hours Clinical history: Mass on .imaging abdomen. Technique: Real-time, grayscale, transabdominal pelvic ultrasound was performed using Duplex scanning including arterial inflow, venous outflow, color and spectral Doppler. Comparison: No prior study is available for comparison. Findings and impression Post hysterectomy. The bilateral ovaries are not identified, consistent with history of nephrectomy. No visible mass or fluid collection. Report Electronically Signed By: Riky Bhakta 08/30/2025 3:54:08 AM [EST]
--- NOTE | 2025-08-30 05:22 | PC.NURSE ---
MD Miranda made aware that pt has a 350cc output at this time, per MD will keep NG tube on suction at this time.
[2025-08-30 06:04] LABS: Basophils # (Auto) 0.0 Thou/mm3 (0.0-0.2); Basophils % (Auto) 0 % (0-2.5); Eosinophils # (Auto) 0.0 Thou/mm3 (0.0-0.5); Eosinophils % (Auto) 0 % (0-10); Hematocrit 38.4 % (36.0-46.0); Hemoglobin 12.3 g/dL (12.0-16.0); Immature Granulocytes Auto 0.02 Thou/mm3 (0.00-0.00); Lymphocytes # (Auto) 1.8 Thou/mm3 (1.0-4.8); Lymphocytes % (Auto) 23 % (10-50); Mean Corpuscular HGB Conc 32.0 g/dl (31.0-37.0); Mean Corpuscular Hemoglobin 28.0 pg (25.0-35.0); Mean Corpuscular Volume 87 fL (80-100); Monocytes # (Auto) 0.6 Thou/mm3 (0.0-0.8); Monocytes % (Auto) 8 % (0-12); Neutrophils # (Auto) 5.3 Thou/mm3 (1.8-7.7); Neutrophils % (Auto) 68 % (37-80); Nucleated Red Blood Cell # 0.00 Thou/mm3 (0.00-0.00); Nucleated Red Blood Cell % 0 /100 WBC (0); Platelet Count 219 Thou/mm3 (140-440); RDW Standard Deviation 44.2 fL (36.4-46.3); Red Blood Count 4.40 Miln/mm3 (4.00-5.20); White Blood Count 7.7 Thou/mm3 (3.6-11.0)
[2025-08-30 08:05] LABS: Albumin, Serum 4.4 gm/dL (3.4-4.8); Albumin/Globulin Ratio 1.6 (1.2-2.2); Alkaline Phosphatase 90 U/L (46-116); Anion Gap 14 (7-16); Aspartate Amino Transferase 17 U/L (0-34); BUN/Creatinine Ratio 21 Ratio (12-20); Bilirubin,Total 0.7 mg/dL (0.3-1.2); Blood Urea Nitrogen 21 mg/dL (9-23); Calcium 9.2 mg/dL (8.3-10.6); Calcium (Corrected) 9.2 mg/dL (8.5-10.1); Carbon Dioxide 26.6 mMol/L (20.0-31.0); Chloride 105 mMol/L (98-107); Creatinine (Component) 1.0 mg/dL (0.6-1.3); Estimated Creatinine Clearance 83.7 mL/min (>60); Globulin 2.8 gm/dL (2.3-3.5); Glucose 132 mg/dL (74-106); Magnesium 1.9 mg/dL (1.6-2.6); Osmolality,Calculated 295 (275-295); Potassium 3.6 mMol/L (3.4-5.1); Sodium 146 mMol/L (136-145); Total Protein 7.2 gm/dL (5.7-8.2); eGFR > 60 See Note
[2025-08-30] MEDS: POTASSIUM CHL 10 mEq IVPB 10 MEQ/100 ML BAG 100 MEQ IV ×4 (08:46→12:02)
--- NOTE | 2025-08-30 10:00 | ESPR_ITS ---
<Statement entered by German Tierney MD - 09/03/25 09:15> I reviewed above note and agree with findings and plans. I have also personally examined the patient with medicine team and went over assessment and plan with medical team including manager of internal audit and resident physician. <Statement entered by Amrita Ritchie MD - 08/30/25 14:34> In summary: 65-year-old female PMHx of HTN, HFrEF, COPD, depression, bipolar admitted for SBO with persistent nausea and vomiting. She has been an bowel rest with NG tube at intermittent suction. She had decent output through NG tube. General surgery has been on board who recommended GASTROGRAFIN bowel series which was started. She has multiple oral home meds which are currently on hold as she is n.p.o. Will resume when she can tolerate oral intake. LABETALOL on board for hypertension. I?ve reviewed the note and agree with this assessment and plan, with the exceptions outlined above. I personally went over the labs, imaging, home medications, and prior records, and examined the patient. The case was also reviewed with the attending physician. Please note: this document was transcribed using voice recognition technology; minor inaccuracies may be present. Amrita Ritchie DO PGY II Documentation for date of: 08/30/25 Subjective Subjective Interval history: 65-year-old female past medical history of hypertension, HFpEF, COPD not on home oxygen, depression, anxiety, bipolar, who presented to the ED in the evening of 08/29/2025 with chief complaint of nausea vomiting. The patient had 4 episodes of vomiting 24 hours ago and 3 episodes the morning of presentation. She denied hematemesis, describes her vomitus as multiple different colors. Patient also endorsed associated generalized left-sided abdominal pain. She was found to have multiple fluid distended small bowel loops on CT abdomen pelvis. Patient was admitted for small bowel obstruction. 08/30/25: NAOE. NG tube suction output : ~600mL this morning. Given high NG output overnight, will hold off resuming home PO meds at this time. Will start small bowel series this afternoon if low output from NG tube. Of note, patient reports she was started on Wegovy 1 month prior. Will follow up with gen surg recs after SBFT. Exam Vital Signs Temp Pulse Resp BP Pulse Ox O2 Del Method 97.4 F 82 16 168/100 H 96 Room Air 08/30/25 08:00 08/30/25 08:00 08/30/25 08:00 08/30/25 08:00 08/30/25 08:00 08/30/25 08:00 Narrative Exam General: Alert, oriented, in no acute distress. HEENT: Normocephalic, atraumatic. NG Tube in place. Neck: Supple, no JVD, Cardiovascular: Regular rate and rhythm. No murmurs, rubs, or gallops. Respiratory: Clear to auscultation bilaterally. No wheezes, rales, or rhonchi. Normal respiratory effort. Abdomen: Soft, nontender, distended. No masses or organomegaly. Musculoskeletal: Full range of motion in all extremities. No joint swelling, tenderness, or deformities. Skin: Warm, dry, intact. No rashes or lesions. Objective Labs 08/30/25 04:50 08/30/25 04:50 Labs: Laboratory Results - last 24 hr 08/29/25 08/30/25 08/30/25 19:35 00:18 04:50 WBC 13.4 H 7.7 D RBC 5.02 4.40 Hgb 13.6 12.3 Hct 42.6 38.4 MCV 85 87 MCH 27.1 28.0 MCHC 31.9 32.0 RDW Std Deviation 42.4 44.2 Plt Count 301 219 D Neut % (Auto) 86 H 68 Lymph % (Auto) 8 L 23 [place] % (Auto) 5 8 Eos % (Auto) 0 0 Baso % (Auto) 0 0 Neut # (Auto) 11.5 H 5.3 Lymph # (Auto) 1.1 1.8 [place] # (Auto) 0.7 0.6 Eos # (Auto) 0.0 0.0 Baso # (Auto) 0.0 0.0 Immature Gran # (Auto) 0.04 H 0.02 H Absolute Nucleated RBC 0.00 0.00 Immature Gran % 0 0 Nucleated RBC % 0 0 Sodium 146 H Potassium 3.6 D Chloride 105 Carbon Dioxide 26.6 Anion Gap 14 BUN 21 Creatinine 1.0 Estim Creat Clear Calc 83.7 eGFR > 60 BUN/Creatinine Ratio 21 H Glucose 132 H Calculated Osmolality 295 Lactic Acid 1.3 Calcium 9.2 Corrected Calcium 9.2 Magnesium 1.9 Total Bilirubin 0.7 AST 17 Alkaline Phosphatase 90 D Troponin I < 0.020 Total Protein 7.2 Albumin 4.4 D Globulin 2.8 Albumin/Globulin Ratio 1.6 Procalcitonin 0.07 Quality Measures Quality Measures none Assessment & Plan Assessment Current Active Medications: Generic Name Dose Route Start Last Admin Trade Name Freq PRN Reason Stop Dose Admin Acetaminophen 650 mg 08/29/25 23:00 Acetaminophen 325 Mg Tablet PO 09/28/25 21:59 Q6H PRN Fever >100.4 or Pain Scale 1-3 Albuterol/Ipratropium 3 ml 08/29/25 23:23 Albuterol/Ipratropium (Duoneb) Rt Telma 3 Ml Nebu INH 09/28/25 23:22 Q2HR PRN SHORTNESS OF BREATH OR WHEEZE Clotrimazole 0 gm 08/29/25 23:30 08/30/25 08:47 Clotrimazole Cr 1% 30 Gm Tube TOP 09/28/25 23:29 1 applicatio BID ALF Administration Sodium Chloride 1,000 mls @ 75 mls/hr 08/29/25 22:08 08/29/25 22:30 Ns IV 09/28/25 22:07 75 mls/hr .[id number] ALF Administration Potassium Chloride 10 meq in 100 mls @ 100 mls/hr 08/30/25 08:45 08/30/25 09:45 Kcl Ivpb IV 08/30/25 12:44 100 mls/hr Q1H ALF Administration Labetalol HCl 10 mg 08/29/25 23:25 08/30/25 01:16 Labetalol Inj 5 Mg/Ml Vial 4 Ml IVP 09/28/25 23:24 10 mg X1 PRN Administration Hypertensive Emergency Morphine Sulfate 2 mg 08/30/25 00:34 08/30/25 09:46 Morphine Sulf Inj 4 Mg/Ml Vial IVP 09/04/25 00:00 2 mg Q6HR PRN Administration PAIN SCALE 4-10(Mod-Sev Ondansetron HCl 4 mg 08/29/25 22:18 Ondansetron Inj 2 Mg/Ml Inj 2 Ml IVP 09/28/25 22:17 Q4HR PRN NAUSEA OR VOMITING Protocol Pantoprazole Sodium 40 mg 08/30/25 09:00 08/30/25 08:46 Pantoprazole Inj 40 Mg Vial IVP 09/29/25 08:59 40 mg QDAY ALF Administration Plan 65-year-old female past medical history of hypertension, HFpEF, COPD not on home oxygen, depression, anxiety, bipolar, who presented to the ED in the evening of 08/29/2025 with chief complaint of nausea vomiting. The patient had 4 episodes of vomiting 24 hours ago and 3 episodes the morning of presentation. She was found to have multiple fluid distended small bowel loops on CT abdomen pelvis. She was admitted for small bowel obstruction. #Acute Small Bowel Obstruction #History of tubal ligation #History of C-sections #History of hernia repair #History of bladder sling surgery Patient presented after 7 episodes total of vomiting in the past 24 hours Upon representation CTAP showed multiple fluid distended small bowel loops Recently started on Wegovy 1 month prior Plan: * N.p.o. * Low intermittent suction for NG tube, if after first hour there is less than 50 mL of volume and no significant active secretions then will initiate small bowel series * Morphine 2 mg IV push every 6 hours for pain scale 4-10, Tylenol for pain scale 1-3 * Zofran 4 mg IV push every 4 hours for nausea vomiting * Maintenance fluids 75 mL/h normal saline due to being n.p.o. * Replete electrolytes as needed, patient has no known history of A-fib, so potassium and magnesium goal will be within normal lab parameters of 3.4 and 1.6 respectively * General surgery consulted, appreciate recs --> Small bowel series ordered #Hypertension Stage II Patient is not been taking her hypertension medications due to nausea and vomiting for the past day before presentation Plan: * As needed labetalol for SBP > 175, HR > 65 * Need to keep patient strictly n.p.o. due to high level of secretions * Once patient is able to tolerate oral, then consider restarting home blood pressure medications #History of HFpEF Echo on 08/11/2019 showed severe left ventricular hypertrophy, and normal left ventricular diastolic filling pattern, EF 60-65%. Patient mentioned that she is prescribed Lasix but does not take it because it makes her urinate too much Plan: * Repeat echo ordered --> LVEF 55-60%. Grade 1 diastolic dysfunction * Patient needs to be on maintenance fluids due to being n.p.o. for hydration, will do gentle rate of 75 mL/h #COPD Not on home oxygen however received years of secondhand smoke Plan: * No direct invention at this time * Oxygen as needed saturation goal over 96% #Depression Chronic medical problem Plan: * Consider restarting home medications once patient able to tolerate oral #Incidental Finding 6 cm Mass Contiguous with Fundus of Uterus CTAP showed a 6 cm mass continuous with a loop fundus of the uterus Plan: * No direct intervention at this time * Pelvic US --> No uterus given hx of hysterectomy #Incidental Finding Small Pericardial Effusion CTAP showed mild pericardial effusion of 3 mm Plan: * No direct intervention at this time * Echo --> no pericardial effusion noted. Health maintenance Dispo: SBFT DVT prophylaxis: SCDs for now, pending GenSurg eval for need of surgery GI prophylaxis: Protonix 40 QD Antibiotics: N/A Bowel Regimen: N/A Diet: Strict NPO Lines: Peripheral IV, NG tube to LIS Code status: DNR/DNI. Case discussed with my senior resident Dr. Ritchie Case discussed with my attending Dr. Kelsy Sousa, DO PGY 1
--- NOTE | 2025-08-30 10:22 | PD.SURCONS ---
HPI Consult details History of present illness: 65F with HTN, CHF, COPD, DMII, history of tubal ligation and hernia repair presenting with abdominal pain and nausea/vomiting. Pt states symptoms began with vomiting the night before presentation, associated with left sided abdominal pain. She denies history of similar symptoms. In ER she underwent CT AP showing signs of early SBO. She reports having a BM yesterday am, usually going to the bathroom daily without any bowel regimen. At the moment she continues to have abdominal pain but is also feeling hungry, has had approximately 400cc NG output total PMH: HTN, CHF, COPD, DMII, depression, anxiety PSHx: Tubal ligation, Csections, hernia repair, bladder sling Meds: no antiplt or anticoagulation Allergies: Diphyenhydramine, fluoxetine, aripiprazole, meclizine Review of Systems Review of Systems ROS Unobtainable: All systems reviewed & no additional complaints except as documented Meds Home Medications and Allergies Home Medications ?Medication ?Instructions ?Recorded ?Confirmed ?Type ibuprofen 800 mg tablet 800 mg PO TID PRN Pain ##0 11/06/13 08/30/25 History oxybutynin chloride 10 mg 10 mg PO BID ##0 03/15/16 08/30/25 History tablet,extended release 24 hr furosemide 40 mg tablet (Lasix) 40 mg PO QAM #0 tabs 09/14/16 08/30/25 History albuterol sulfate 90 mcg/actuation 2 puff inhalation Q6H 02/06/18 08/30/25 History aerosol inhaler (Ventolin HFA) aspirin 81 mg tablet,delayed 81 mg PO QDAY 02/06/18 08/30/25 History release (Wilda Low Dose Aspirin) hydroxyzine HCl 25 mg tablet 50 mg PO TID PRN Itching 02/06/18 08/30/25 History loratadine 10 mg tablet (Loradamed) 10 mg PO QDAY 02/06/18 08/30/25 History mirtazapine 45 mg tablet (Remeron) 45 mg PO HS 02/06/18 08/30/25 History nitroglycerin 0.4 mg sublingual 1 tab buccal Q5MIN PRN Chest Pain 08/10/19 08/30/25 History tablet atorvastatin 20 mg tablet 40 mg PO QPM 02/25/20 08/30/25 History donepezil 5 mg tablet 5 mg PO QDAY 02/25/20 08/30/25 History metoprolol succinate 100 mg 100 mg PO QDAY 02/25/20 08/30/25 History tablet,extended release 24 hr omeprazole 20 mg tablet,delayed 20 mg PO QDAY 02/25/20 08/30/25 History release terazosin 10 mg capsule 10 mg PO DAILY 02/25/20 08/30/25 History diclofenac sodium 1 % topical gel 2 g topical QID PRN pain 08/30/25 08/30/25 History docusate sodium 100 mg capsule 100 mg PO QDAY PRN constipation 08/30/25 08/30/25 History ergocalciferol (vitamin D2) 1,250 1,250 mcg PO QWEEK 08/30/25 08/30/25 History mcg (50,000 unit) capsule escitalopram oxalate 10 mg tablet 10 mg PO QDAY 08/30/25 08/30/25 History meloxicam 7.5 mg tablet 7.5 mg PO QDAY 08/30/25 08/30/25 History montelukast 10 mg tablet 10 mg PO QDAY 08/30/25 08/30/25 History sertraline 100 mg tablet 100 mg PO QDAY 08/30/25 08/30/25 History Allergies Allergy/AdvReac Type Severity Reaction Status Date / Time diphenhydramine Allergy Severe CARDIAC Verified 08/29/25 09:54 ARREST fluoxetine (From Prozac) Allergy Unknown Verified 08/29/25 09:54 aripiprazole AdvReac Intermediate I DON'T Verified 08/29/25 09:54 WANT TO FUNCTION meclizine AdvReac Intermediate Drowsy Verified 08/29/25 09:54 Exam Vital Signs Temp Pulse Resp BP Pulse Ox O2 Del Method 97.4 F 82 16 168/100 H 96 Room Air 08/30/25 08:00 08/30/25 08:00 08/30/25 08:00 08/30/25 08:00 08/30/25 08:00 08/30/25 08:00 Constitutional Constitutional: no acute distress Routine Respiratory Exam Respiratory: Present no resp distress Routine Abdominal Exam Abdominal: Present soft and tenderness (mild tenderness diffusely); Absent distended, rebound or guarding Results Results: Laboratory Laboratory results: results reviewed Results: Imaging CT scan - abdomen: report reviewed and image reviewed Assessment & Plan Plan 65F with HTN, CHF, COPD, DMII, history of tubal ligation, bladder sling and hernia repair presenting with abdominal pain and nausea/vomiting, imaging consistent with SBO, hemodynamically normal with normal WBC Added IV tylenol and toradol for pain control Small bowel series
[2025-08-30] MEDS: ACETAMINOPHEN IVPB 1,000 MG/100 ML VIAL 250 MG IV ×3 (10:45→17:24)
[2025-08-30] MEDS: SODIUM CHLORIDE 0.9% 1000 ML 1,000 ML 75 ML IV (12:01)
[2025-08-30 12:55] LABS: Alanine Aminotransferase 9 U/L (10-49); Phosphorous 3.9 mg/dL (2.4-5.1)
[2025-08-30 13:18] LABS: Glucose Estimated Average 111 mg/dL (80-131); Hemoglobin A1C 5.5 % Hgb (4.8-6.0)
--- NOTE | 2025-08-30 13:37 | PC.SS ---
Addendum entered by Angelina Pat 08/30/25 15:49: Rounding note: General surgery consulted, Small bowel series ordered. Possible discharge home 08/31/25. Original Note: 65YO White Female; Reason for Visit: SBO SS met with patient at bedside to complete initial assessment. Role and purpose of today?s contact explained. Patient confirmed her demographic information and stated she lives with her daughter Inez Jimenes. Patient stated her daughter Inez Jimenes [phone] is her primary medical surrogate decisionmaker. Patient reported she is independent with ADL completion and uses a Rollator Walker for ambulation. Patient is requesting to return when medically clear. Family to provide transportation. PHARMACY: [facility]. ?PCP:Beverley Murphy, [place] appt. 08-28-25 DISCHARGE PLAN: HOME NEXT OF KIN: Daughter Inez Jimenes [phone]
--- NOTE | 2025-08-30 19:29 | PC.NURSE ---
Report received pending small bowel series tomorrow, out put for day from NGT 250ml
[2025-08-31] VITALS (12 sets, daily range): BP systolic 153–198; BP diastolic 80–104; PULSE 59–88; RESP 18–96; TEMP 36.3–37.1; O2SAT 92–98
--- NOTE | 2025-08-31 | XR_ITS ---
Examination: Abdomen AP single view Technique: AP portable supine abdomen, single view Exam date and time: 08/31/2025 at 4:05 p.m. Clinical indication 4 1/2-hour film after injection of contrast media into the stomach. FINDINGS: There is still a moderate amount of contrast media remaining in the stomach. However patchy areas of contrast media are scattered throughout the entire small bowel, and contrast now partially fills out the a sending and proximal transverse colon. IMPRESSION: 1. With contrast material injected into the stomach 4 1/2 hours ago has now reached the a sending and transverse colon which is essentially normal
--- NOTE | 2025-08-31 | XR_ITS ---
Examination: Abdomen AP single view Technique: AP portable supine abdomen, single view Exam date and time: August 31, 2025, 1737 hours INDICATION: Abdominal distention today, 6-hour delayed film for small bowel series. FINDINGS: Contrast and distended small bowel loops,. Contrast is present in the rectum IMPRESSION: Negative for complete small bowel obstruction
[2025-08-31] MEDS: ACETAMINOPHEN IVPB 1,000 MG/100 ML VIAL 250 MG IV ×3 (00:35→18:19)
[2025-08-31] MEDS: SODIUM CHLORIDE 0.9% 1000 ML 1,000 ML 75 ML IV ×2 (00:36→18:19)
--- NOTE | 2025-08-31 06:01 | XR_ITS ---
EXAMINATION: Small bowel series AP supine abdomen 3 views Date and time: August 31, 2025, 1113 hours INDICATIONS: Abdominal pain and distention this week TECHNIQUE AND FINDINGS: Patient received 120 cc Gastrografin through the orogastric tube Immediate 30-minute 1 hour 30-minute films obtained These demonstrate contrast and distended small bowel loops IMPRESSION: Small bowel obstruction pattern Recommend follow-up abdomen films 2:00 p.m. 4:00 p.m. 6:00 p.m.
[2025-08-31 06:13] LABS: Basophils # (Auto) 0.0 Thou/mm3 (0.0-0.2); Basophils % (Auto) 0 % (0-2.5); Eosinophils # (Auto) 0.3 Thou/mm3 (0.0-0.5); Eosinophils % (Auto) 6 % (0-10); Hematocrit 37.6 % (36.0-46.0); Hemoglobin 11.9 g/dL (12.0-16.0); Immature Granulocytes Auto 0.01 Thou/mm3 (0.00-0.00); Lymphocytes # (Auto) 1.2 Thou/mm3 (1.0-4.8); Lymphocytes % (Auto) 24 % (10-50); Mean Corpuscular HGB Conc 31.6 g/dl (31.0-37.0); Mean Corpuscular Hemoglobin 27.9 pg (25.0-35.0); Mean Corpuscular Volume 88 fL (80-100); Monocytes # (Auto) 0.6 Thou/mm3 (0.0-0.8); Monocytes % (Auto) 11 % (0-12); Neutrophils # (Auto) 2.9 Thou/mm3 (1.8-7.7); Neutrophils % (Auto) 58 % (37-80); Nucleated Red Blood Cell # 0.00 Thou/mm3 (0.00-0.00); Nucleated Red Blood Cell % 0 /100 WBC (0); Platelet Count 216 Thou/mm3 (140-440); RDW Standard Deviation 44.8 fL (36.4-46.3); Red Blood Count 4.26 Miln/mm3 (4.00-5.20); White Blood Count 4.9 Thou/mm3 (3.6-11.0)
[2025-08-31 06:21] LABS: Alanine Aminotransferase < 7 U/L (10-49); Albumin, Serum 4.0 gm/dL (3.4-4.8); Albumin/Globulin Ratio 1.4 (1.2-2.2); Alkaline Phosphatase 83 U/L (46-116); Anion Gap 11 (7-16); Aspartate Amino Transferase 20 U/L (0-34); BUN/Creatinine Ratio 20 Ratio (12-20); Bilirubin,Total 0.9 mg/dL (0.3-1.2); Blood Urea Nitrogen 18 mg/dL (9-23); Calcium 9.1 mg/dL (8.3-10.6); Calcium (Corrected) 9.1 mg/dL (8.5-10.1); Carbon Dioxide 26.1 mMol/L (20.0-31.0); Chloride 106 mMol/L (98-107); Creatinine (Component) 0.9 mg/dL (0.6-1.3); Estimated Creatinine Clearance 93.2 mL/min (>60); Globulin 2.9 gm/dL (2.3-3.5); Glucose 113 mg/dL (74-106); Magnesium 2.0 mg/dL (1.6-2.6); Osmolality,Calculated 287 (275-295); Phosphorous 2.8 mg/dL (2.4-5.1); Potassium 3.6 mMol/L (3.4-5.1); Sodium 143 mMol/L (136-145); Total Protein 6.9 gm/dL (5.7-8.2); eGFR > 60 See Note
--- NOTE | 2025-08-31 07:55 | XR_ITS ---
Single AP portable film centered at the level of the diaphragm, to evaluate the position of the nasogastric catheter. Study done on 08/31/2025 at 9:12 a.m. Reference is made to the previous portable chest film 2 days ago FINDINGS: Today's film shows that the distal tip of the nasogastric catheter is well positioned in the mid stomach. There does appear to be mild cardiomegaly there is obscuration of the left lateral costophrenic sulcus unchanged. In other areas the visible lower lung zones are clear. IMPRESSION: 1. Tip of the nasogastric catheter is well located in the mid stomach
[2025-08-31] MEDS: POTASSIUM CHL 10 mEq IVPB 10 MEQ/100 ML BAG 100 MEQ IV (08:33)
[2025-08-31] MEDS: CLOTRIMAZOLE CR 1% 30 GM TUBE TOP ×2 (08:39→23:50)
[2025-08-31] MEDS: POTASSIUM CHL 10 mEq IVPB 10 MEQ/100 ML BAG 75 MEQ IV ×3 (09:32→12:19)
[2025-08-31] MEDS: SERTRALINE HCL 25 MG TABLET 100 MG NG (11:02)
[2025-08-31] MEDS: DONEPEZIL HCL 5 MG TABLET NG (11:02)
[2025-08-31] MEDS: METOPROLOL TARTRATE 25 MG TABLET 100 MG NG ×2 (11:02→21:08)
[2025-08-31] MEDS: ESCITALOPRAM OXALATE 10 MG TABLET NG (11:02)
--- NOTE | 2025-08-31 12:44 | ESPR_ITS ---
<Statement entered by German Tierney MD - 09/05/25 12:53> I reviewed above note and agree with findings and plans. I have also personally examined the patient with medicine team and went over assessment and plan with medical team including international affairs vice president and resident physician. <Statement entered by Amrita Ritchie MD - 09/01/25 12:38> In summary: 65-year-old female PMHx of HTN, HFrEF, COPD, depression, bipolar admitted for SBO with persistent nausea and vomiting. She has been an bowel rest with NG tube at intermittent suction. She had decent output through NG tube. General surgery has been on board who recommended GASTROGRAFIN bowel series which was started. She has multiple oral home meds which are currently on hold as she is n.p.o. Will resume when she can tolerate oral intake. LABETALOL on board for hypertension. I?ve reviewed the note and agree with this assessment and plan, with the exceptions outlined above. I personally went over the labs, imaging, home medications, and prior records, and examined the patient. The case was also reviewed with the attending physician. Please note: this document was transcribed using voice recognition technology; minor inaccuracies may be present. Amrita Ritchie DO PGY II Documentation for date of: 08/31/25 Subjective Subjective Interval history: 65-year-old female past medical history of hypertension, HFpEF, COPD not on home oxygen, depression, anxiety, bipolar, who presented to the ED in the evening of 08/29/2025 with chief complaint of nausea vomiting. The patient had 4 episodes of vomiting 24 hours ago and 3 episodes the morning of presentation. She denied hematemesis, describes her vomitus as multiple different colors. Patient also endorsed associated generalized left-sided abdominal pain. She was found to have multiple fluid distended small bowel loops on CT abdomen pelvis. Patient was admitted for small bowel obstruction. 08/30/25: NAOE. NG tube suction output : ~600mL this morning. Given high NG output overnight, will hold off resuming home PO meds at this time. Will start small bowel series this afternoon if low output from NG tube. Of note, patient reports she was started on Wegovy 1 month prior. Will follow up with gen surg recs after SBFT. 08/31/25: NAOE. Patient seen and examined at bedside, complains of thirst and sore throat, likely due to NG tube. Per RN, 200mL of NG output overnight with 3 formed stool. Will start small bowel series, pending final result. Exam Vital Signs Temp Pulse Resp BP Pulse Ox O2 Del Method 97.4 F 83 18 174/104 H 96 Room Air 08/31/25 08:00 08/31/25 11:02 08/31/25 08:22 08/31/25 11:02 08/31/25 08:22 08/31/25 08:00 Narrative Exam General: Alert, oriented, in no acute distress. BMI 45. HEENT: Normocephalic, atraumatic. NG Tube in place. Neck: Supple, no JVD. Cardiovascular: Regular rate and rhythm. No murmurs, rubs, or gallops. Respiratory: Clear to auscultation bilaterally. No wheezes, rales, or rhonchi. Normal respiratory effort. Abdomen: Soft, nontender, distended. No masses or organomegaly. No guarding or rigidity. Musculoskeletal: Full range of motion in all extremities. No joint swelling, tenderness, or deformities. Skin: Warm, dry, intact. No rashes or lesions. Objective Labs 08/31/25 05:05 08/31/25 05:05 Labs: Laboratory Results - last 24 hr 08/30/25 08/31/25 04:50 05:05 WBC 4.9 RBC 4.26 Hgb 11.9 L Hct 37.6 MCV 88 MCH 27.9 MCHC 31.6 RDW Std Deviation 44.8 Plt Count 216 Neut % (Auto) 58 Lymph % (Auto) 24 [place] % (Auto) 11 Eos % (Auto) 6 Baso % (Auto) 0 Neut # (Auto) 2.9 Lymph # (Auto) 1.2 [place] # (Auto) 0.6 Eos # (Auto) 0.3 Baso # (Auto) 0.0 Immature Gran # (Auto) 0.01 H Absolute Nucleated RBC 0.00 Immature Gran % 0 Nucleated RBC % 0 Sodium 143 Potassium 3.6 Chloride 106 Carbon Dioxide 26.1 Anion Gap 11 BUN 18 Creatinine 0.9 Estim Creat Clear Calc 93.2 eGFR > 60 BUN/Creatinine Ratio [address] Glu mg/dL 111 Hemoglobin A1c 5.5 Calculated Osmolality 287 Calcium 9.1 Corrected Calcium 9.1 Phosphorus 3.9 2.8 Magnesium 2.0 Total Bilirubin 0.9 AST 20 ALT 9 L < 7 L Alkaline Phosphatase 83 Total Protein 6.9 Albumin 4.0 Globulin 2.9 Albumin/Globulin Ratio 1.4 Quality Measures Quality Measures none Assessment & Plan Assessment Current Active Medications: Generic Name Dose Route Start Last Admin Trade Name Freq PRN Reason Stop Dose Admin Albuterol/Ipratropium 3 ml 08/29/25 23:23 Albuterol/Ipratropium (Duoneb) Rt Telma 3 Ml Nebu INH 09/28/25 23:22 Q2HR PRN SHORTNESS OF BREATH OR WHEEZE Clotrimazole 0 gm 08/29/25 23:30 08/31/25 08:39 Clotrimazole Cr 1% 30 Gm Tube TOP 09/28/25 23:29 1 applicatio BID ALF Administration Donepezil HCl 5 mg 08/31/25 11:00 08/31/25 11:02 Donepezil Hcl 5 Mg Tablet NG 09/30/25 10:59 5 mg DAILY ALF Administration Escitalopram Oxalate 10 mg 08/31/25 11:00 08/31/25 11:02 Escitalopram Oxalate 10 Mg Tablet NG 09/30/25 10:59 10 mg QDAY ALF Administration Sodium Chloride 1,000 mls @ 75 mls/hr 08/29/25 22:08 08/31/25 00:36 Ns IV 09/28/25 22:07 75 mls/hr .[id number] ALF Administration Acetaminophen 1,000 mg in 100 mls @ 250 mls/hr 08/30/25 10:01 08/31/25 12:19 Ofirmev Inj IV 09/02/25 00:23 250 mls/hr Q6HR ALF Administration Ketorolac Tromethamine 15 mg 08/30/25 10:01 Ketorolac Inj 30 Mg/Ml Vial IVP 09/04/25 10:00 Q6H PRN PAIN SCALE 4-6 (Moderate Labetalol HCl 10 mg 08/29/25 23:25 08/30/25 01:16 Labetalol Inj 5 Mg/Ml Vial 4 Ml IVP 09/28/25 23:24 10 mg X1 PRN Administration Hypertensive Emergency Metoprolol Tartrate 100 mg 08/31/25 11:00 08/31/25 11:02 Metoprolol Tartrate 25 Mg Tablet NG 09/30/25 10:59 100 mg BID ALF Administration Mirtazapine 45 mg 08/31/25 21:00 Mirtazapine 15 Mg Tablet NG 09/30/25 20:59 HS ALF Morphine Sulfate 2 mg 08/30/25 12:07 08/30/25 22:23 Morphine Sulf Inj 4 Mg/Ml Vial IVP 09/04/25 00:00 2 mg Q6HR PRN Administration PAIN SCALE 7-10(Mod-Sev Ondansetron HCl 4 mg 08/29/25 22:18 Ondansetron Inj 2 Mg/Ml Inj 2 Ml IVP 09/28/25 22:17 Q4HR PRN NAUSEA OR VOMITING Protocol Pantoprazole Sodium 40 mg 08/30/25 09:00 08/31/25 08:34 Pantoprazole Inj 40 Mg Vial IVP 09/29/25 08:59 40 mg QDAY ALF Administration Sertraline HCl 100 mg 08/31/25 11:00 08/31/25 11:02 Sertraline Hcl 25 Mg Tablet NG 09/30/25 10:59 100 mg DAILY ALF Administration Plan 65-year-old female past medical history of hypertension, HFpEF, COPD not on home oxygen, depression, anxiety, bipolar, who presented to the ED in the evening of 08/29/2025 with chief complaint of nausea vomiting. The patient had 4 episodes of vomiting 24 hours ago and 3 episodes the morning of presentation. She was found to have multiple fluid distended small bowel loops on CT abdomen pelvis. She was admitted for small bowel obstruction. #Acute Small Bowel Obstruction #History of tubal ligation #History of C-sections #History of hernia repair #History of bladder sling surgery Patient presented after 7 episodes total of vomiting in the past 24 hours Upon representation CTAP showed multiple fluid distended small bowel loops Recently started on Wegovy 1 month prior Plan: * N.p.o. * Low intermittent suction for NG tube, if after first hour there is less than 50 mL of volume and no significant active secretions then will initiate small bowel series * Morphine 2 mg IV push every 6 hours for pain scale 4-10, Tylenol for pain scale 1-3 * Zofran 4 mg IV push every 4 hours for nausea vomiting * Maintenance fluids 75 mL/h normal saline due to being n.p.o. * Replete electrolytes as needed, patient has no known history of A-fib, so potassium and magnesium goal will be within normal lab parameters of 3.4 and 1.6 respectively * General surgery consulted, appreciate recs --> Small bowel series started this AM, pending result. #Hypertension Stage II Patient is not been taking her hypertension medications due to nausea and vomiting for the past day before presentation Plan: * As needed labetalol for SBP > 175, HR > 65 * Need to keep patient strictly n.p.o. due to high level of secretions * Metoprolol tartrate 100mg NG BID. #History of HFpEF Echo on 08/11/2019 showed severe left ventricular hypertrophy, and normal left ventricular diastolic filling pattern, EF 60-65%. Patient mentioned that she is prescribed Lasix but does not take it because it makes her urinate too much Plan: * Repeat echo ordered --> LVEF 55-60%. Grade 1 diastolic dysfunction * Patient needs to be on maintenance fluids due to being n.p.o. for hydration, will do gentle rate of 75 mL/h #COPD Not on home oxygen however received years of secondhand smoke Plan: * No direct invention at this time * Oxygen as needed saturation goal over 96% #Depression #Anxiety #Bipolar Disorder Chronic medical problem Plan: * Restarting home medications via NG tube. #Incidental Finding 6 cm Mass Contiguous with Fundus of Uterus CTAP showed a 6 cm mass continuous with a loop fundus of the uterus Plan: * No direct intervention at this time * Pelvic US --> No uterus given hx of hysterectomy #Incidental Finding Small Pericardial Effusion CTAP showed mild pericardial effusion of 3 mm Plan: * No direct intervention at this time * Echo --> no pericardial effusion noted. Health maintenance Dispo: SBFT DVT prophylaxis: SCDs for now, pending GenSurg eval for need of surgery GI prophylaxis: Protonix 40 QD Antibiotics: N/A Bowel Regimen: N/A Diet: Strict NPO Lines: Peripheral IV, NG tube to LIS Code status: DNR/DNI. Case discussed with my senior resident Dr. Ritchie Case discussed with my attending Dr. Kelsy Sousa, DO PGY 1
--- NOTE | 2025-08-31 13:10 | PD.SURPROG ---
Documentation for date of: 08/31/25 Subjective Subjective Brief History: 65F with HTN, CHF, COPD, DMII, history of tubal ligation and hernia repair presenting with abdominal pain and nausea/vomiting. Pt states symptoms began with vomiting the night before presentation, associated with left sided abdominal pain. She denies history of similar symptoms. In ER she underwent CT AP showing signs of early SBO. She reports having a BM yesterday am, usually going to the bathroom daily without any bowel regimen. At the moment she continues to have abdominal pain but is also feeling hungry, has had approximately 400cc NG output total PMH: HTN, CHF, COPD, DMII, depression, anxiety PSHx: Tubal ligation, Csections, hernia repair, bladder sling Meds: no antiplt or anticoagulation Allergies: Diphyenhydramine, fluoxetine, aripiprazole, meclizine Narrative: Feeling better today with improved pain and no nausea, passing gas and having BMs, small bowel series in progress Exam Vital Signs Temp Pulse Resp BP Pulse Ox O2 Del Method 97.4 F 83 18 174/104 H 96 Room Air 08/31/25 08:00 08/31/25 11:02 08/31/25 08:22 08/31/25 11:02 08/31/25 08:22 08/31/25 08:00 Constitutional Constitutional: no acute distress Routine Respiratory Exam Respiratory: Present no resp distress Routine Abdominal Exam Abdominal: Present soft; Absent tenderness or distended Results Results: Laboratory Laboratory results: results reviewed Assessment & Plan Plan 65F with HTN, CHF, COPD, DMII, history of tubal ligation, bladder sling and hernia repair presenting with abdominal pain and nausea/vomiting, imaging consistent with SBO, clinically improved with return of bowel function F/u small bowel series, when contrast in colon remove NG and start CLD
[2025-08-31] MEDS: MIRTAZAPINE 15 MG TABLET 45 MG NG (21:09)
[2025-09-01] MEDS: ACETAMINOPHEN IVPB 1,000 MG/100 ML VIAL 250 MG IV ×2 (01:18→05:14)
[2025-09-01 04:00] VITALS: BP 160/89; PULSE 60; PULSE 62; RESP 14; TEMP 36.4; O2SAT 93
[2025-09-01] MEDS: SODIUM CHLORIDE 0.9% 1000 ML 1,000 ML 75 ML IV (05:14)
[2025-09-01 06:00] VITALS: BMI 44.5
[2025-09-01 06:19] LABS: Basophils # (Auto) 0.0 Thou/mm3 (0.0-0.2); Basophils % (Auto) 1 % (0-2.5); Eosinophils # (Auto) 0.3 Thou/mm3 (0.0-0.5); Eosinophils % (Auto) 5 % (0-10); Hematocrit 39.4 % (36.0-46.0); Hemoglobin 12.5 g/dL (12.0-16.0); Immature Granulocytes Auto 0.01 Thou/mm3 (0.00-0.00); Lymphocytes # (Auto) 1.6 Thou/mm3 (1.0-4.8); Lymphocytes % (Auto) 23 % (10-50); Mean Corpuscular HGB Conc 31.7 g/dl (31.0-37.0); Mean Corpuscular Hemoglobin 27.9 pg (25.0-35.0); Mean Corpuscular Volume 88 fL (80-100); Monocytes # (Auto) 0.5 Thou/mm3 (0.0-0.8); Monocytes % (Auto) 8 % (0-12); Neutrophils # (Auto) 4.2 Thou/mm3 (1.8-7.7); Neutrophils % (Auto) 64 % (37-80); Nucleated Red Blood Cell # 0.00 Thou/mm3 (0.00-0.00); Nucleated Red Blood Cell % 0 /100 WBC (0); Platelet Count 252 Thou/mm3 (140-440); RDW Standard Deviation 43.9 fL (36.4-46.3); Red Blood Count 4.48 Miln/mm3 (4.00-5.20); White Blood Count 6.6 Thou/mm3 (3.6-11.0)
[2025-09-01 06:30] LABS: Alanine Aminotransferase 12 U/L (10-49); Albumin, Serum 4.5 gm/dL (3.4-4.8); Albumin/Globulin Ratio 1.6 (1.2-2.2); Alkaline Phosphatase 83 U/L (46-116); Anion Gap 11 (7-16); Aspartate Amino Transferase 21 U/L (0-34); BUN/Creatinine Ratio 17 Ratio (12-20); Bilirubin,Total 0.8 mg/dL (0.3-1.2); Blood Urea Nitrogen 15 mg/dL (9-23); Calcium 9.2 mg/dL (8.3-10.6); Calcium (Corrected) 9.2 mg/dL (8.5-10.1); Carbon Dioxide 23.9 mMol/L (20.0-31.0); Chloride 109 mMol/L (98-107); Creatinine (Component) 0.9 mg/dL (0.6-1.3); Estimated Creatinine Clearance 92.4 mL/min (>60); Globulin 2.8 gm/dL (2.3-3.5); Glucose 106 mg/dL (74-106); Magnesium 1.9 mg/dL (1.6-2.6); Osmolality,Calculated 287 (275-295); Phosphorous 2.4 mg/dL (2.4-5.1); Potassium 3.8 mMol/L (3.4-5.1); Sodium 144 mMol/L (136-145); Total Protein 7.3 gm/dL (5.7-8.2); eGFR > 60 See Note
[2025-09-01 08:00] VITALS: BP 170/93; PULSE 63; PULSE 65; RESP 18; TEMP 36.8; O2SAT 96
[2025-09-01 08:52] VITALS: BP 162/82; PULSE 65
[2025-09-01] MEDS: SERTRALINE HCL 25 MG TABLET 100 MG NG (08:52)
[2025-09-01] MEDS: METOPROLOL TARTRATE 25 MG TABLET 100 MG NG (08:52)
[2025-09-01 08:53] VITALS: PULSE 65; RESP 14; RESP 96
[2025-09-01] MEDS: ESCITALOPRAM OXALATE 10 MG TABLET NG (08:53)
[2025-09-01] MEDS: CLOTRIMAZOLE CR 1% 30 GM TUBE TOP (08:53)
[2025-09-01] MEDS: DONEPEZIL HCL 5 MG TABLET NG (08:53)
--- NOTE | 2025-09-01 10:07 | PD.SURPROG ---
Documentation for date of: 09/01/25 Subjective Subjective Brief History: 65F with HTN, CHF, COPD, DMII, history of tubal ligation and hernia repair presenting with abdominal pain and nausea/vomiting. Pt states symptoms began with vomiting the night before presentation, associated with left sided abdominal pain. She denies history of similar symptoms. In ER she underwent CT AP showing signs of early SBO. She reports having a BM yesterday am, usually going to the bathroom daily without any bowel regimen. At the moment she continues to have abdominal pain but is also feeling hungry, has had approximately 400cc NG output total PMH: HTN, CHF, COPD, DMII, depression, anxiety PSHx: Tubal ligation, Csections, hernia repair, bladder sling Meds: no antiplt or anticoagulation Allergies: Diphyenhydramine, fluoxetine, aripiprazole, meclizine Narrative: Small bowel series negative for obstruction, pt having diarrhea and tolerating CLD Exam Vital Signs Temp Pulse Resp BP Pulse Ox O2 Del Method 98.2 F 65 14 162/82 H 96 Room Air 09/01/25 08:00 09/01/25 08:53 09/01/25 08:53 09/01/25 08:52 09/01/25 08:00 09/01/25 08:00 Constitutional Constitutional: no acute distress Routine Respiratory Exam Respiratory: Present no resp distress Routine Abdominal Exam Abdominal: Present soft; Absent tenderness or distended Results Results: Laboratory Laboratory results: results reviewed Results: Imaging Abdominal x-ray: report reviewed and image reviewed Assessment & Plan Plan 65F with HTN, CHF, COPD, DMII, history of tubal ligation and hernia repair presenting with abdominal pain and nausea/vomiting, findings of SBO now resolved Advance diet as tolerated
--- NOTE | 2025-09-01 10:44 | ESDS_ITS ---
<Statement entered by German Tierney MD - 09/05/25 12:55> I reviewed above note and agree with findings and plans. I have also personally examined the patient with medicine team and went over assessment and plan with medical team including internal medicine nurse practitioner and resident physician. <Statement entered by Amrita Ritchie MD - 09/01/25 12:38> In summary: 65-year-old female PMHx of HTN, HFrEF, COPD, depression, bipolar admitted for SBO with persistent nausea and vomiting. She has been an bowel rest with NG tube at intermittent suction. She had decent output through NG tube. General surgery has been on board who recommended GASTROGRAFIN bowel series which was started with resolution of SBO. She has been tolerating oral intake well without nausea vomiting or abdominal pain. We recommended long-term MIRALAX and staying hydrated to prevent future episodes of SBO. I?ve reviewed the note and agree with this assessment and plan, with the excep tions outlined above. I personally went over the labs, imaging, home medications, and prior records, and examined the patient. The case was also reviewed with the attending physician. Please note: this document was transcribed using voice recognition technology; minor inaccuracies may be present. Amrita Ritchie DO PGY II Planned Discharge Date 09/01/25 DS: Providers Provider Date of admission: 08/29/25 22:00 Primary care physician: Serafin Murphy MD Admitting Provider: Billy Jenkins DO Attending Provider on Admission: German Tierney MD Consults: 08/30/25 08:07 Consult to General Surgery Routine Comment: SBO Consulting Provider: Inez Medellin Attending Provider on DC: German Tierney MD Discharging Provider: Deo Sousa DO Anticipated date of discharge: 09/01/25 DS: Diagnosis Problem List Completed Was Problem List Reviewed/Reconciled?: Yes Hospital Course Hospital Course Hospital course: Mrs. Marin is a 65-year-old female past medical history of hypertension, HFpEF, COPD not on home oxygen, depression, anxiety, bipolar, who presented to the ED in the evening of 08/29/2025 with chief complaint of nausea vomiting. The patient had 4 episodes of vomiting 24 hours ago prior to admission and 3 episodes the morning of presentation. She denied hematemesis, describes her vomitus as multiple different colors. Patient also reported that she recently started on Wegovy just 1 month prior. In the ED, she was found to have multiple fluid distended small bowel loops on CT abdomen pelvis. Patient was admitted for small bowel obstruction on 08/29/25. General surgery was consulted, recommended small bowel series. On day 1 of admission, it was reported that patient had 2 bowel movement consistent of liquid [place]. Small bowel series showed contrast in the colon and rectum, negative for complete small bowel obstruction. Her diet was advanced on the morning of discharge. Patient tolerated the diet well and jones d a liquid pebble bowel movement. At this time, patient is medically and physically stable for discharge for home. All questions and concerns addressed, plan of care discussed with patient, return precautions given. Diagnosis: #Acute Small Bowel Obstruction - ruled out #History of tubal ligation #History of C-sections #History of hernia repair #History of bladder sling surgery #Hypertension Stage II #History of HFpEF #COPD #Depression #Anxiety #Bipolar Disorder Discharge Plan: * Follow-up with Primary care provider within 1-2 weeks of discharge. * Recommended staying hydrated and taking MIRALAX as need to maintain regular bowel movement and soft stool. * Continue taking medications as prescribed below. * Return to Emergency Room if symptoms persist, worsen, or new symptoms develop. Case discussed with my senior resident Dr. Ritchie Case discussed with my attending Dr. Kelsy Sousa, PGY 1 Status at Discharge Overall status at discharge: patient is back to baseline Time Spent with Patient Time attestation: Total time spent providing and/or coordinating discharge services: Time spent: Less than 30 minutes Exam Vital Signs Temp Pulse Resp BP Pulse Ox O2 Del Method 98.2 F 65 14 162/82 H 96 Room Air 09/01/25 08:00 09/01/25 08:53 09/01/25 08:53 09/01/25 08:52 09/01/25 08:00 09/01/25 08:00 Narrative Exam General: Alert, oriented, in no acute distress. BMI 45. Obese-habitus HEENT: Normocephalic, atraumatic. NG Tube removed. Neck: Supple, no JVD. Cardiovascular: Regular rate and rhythm. No murmurs, rubs, or gallops. Respiratory: Clear to auscultation bilaterally. No wheezes, rales, or rhonchi. Normal respiratory effort. Abdomen: Soft, nontender, nondistended. No masses or organomegaly. No guarding or rigidity. Musculoskeletal: Full range of motion in all extremities. No joint swelling, tenderness, or deformities. Skin: Warm, dry, intact. No rashes or lesions. Discharge Plan Plan Patient Disposition: HOME (Self Care) Care Plan Goals: * Follow-up with Primary care provider within 1-2 weeks of discharge. * Recommended staying hydrated and taking MIRALAX as need to maintain regular bowel movement and soft stool. * Continue taking medications as prescribed below. * Return to Emergency Room if symptoms persist, worsen, or new symptoms develop. Prescriptions/Referrals Prescriptions/Med Rec: New polyethylene glycol 3350 [Miralax] 17 gram/dose powder 4 g PO QDAY Qty: 238 0RF Continued ibuprofen 800 MG tablet 800 mg PO TID PRN (Reason: Pain) Qty: 0 oxybutynin chloride 10 mg Tablet Extended Release 24 Hr 10 mg PO BID Qty: 0 furosemide [Lasix] 40 MG tablet 40 mg PO QAM Qty: 0 aspirin [Wilda Low Dose Aspirin] 81 mg Tablet,Delayed Release (Dr/Ec) 81 mg PO QDAY mirtazapine [Remeron] 45 mg Tablet 45 mg PO HS hydroxyzine HCl 25 mg Tablet 50 mg PO TID PRN (Reason: Itching) loratadine [Loradamed] 10 mg Tablet 10 mg PO QDAY albuterol sulfate [Ventolin HFA] 90 mcg/actuation Hfa Aerosol Inhaler 2 puff INHALATION Q6H nitroglycerin 0.4 mg Tablet, Sublingual 1 tab BUCCAL Q5MIN PRN (Reason: Chest Pain) terazosin 10 mg Capsule 10 mg PO DAILY atorvastatin 20 mg Tablet 40 mg PO QPM donepezil 5 mg Tablet 5 mg PO QDAY omeprazole 20 mg Tablet,Delayed Release (Dr/Ec) 20 mg PO QDAY metoprolol succinate 100 mg Tablet Extended Release 24 Hr 100 mg PO QDAY montelukast 10 mg tablet 10 mg PO QDAY Patient Comments: TAKE ONE TABLET BY MOUTH AT BEDTIME FOR BREATHING meloxicam 7.5 mg tablet 7.5 mg PO QDAY Patient Comments: TAKE ONE TABLET BY MOUTH EVERY DAY WITH FOOD escitalopram oxalate 10 mg tablet 10 mg PO QDAY Patient Comments: TAKE ONE TABLET BY MOUTH EVERY DAY ergocalciferol (vitamin D2) 1,250 mcg (50,000 unit) capsule 1,250 mcg PO QWEEK Patient Comments: TAKE ONE CAPSULE BY MOUTH EVERY WEEK VITAMIN docusate sodium 100 mg capsule 100 mg PO QDAY PRN (Reason: constipation) Patient Comments: TAKE ONE CAPSULE BY MOUTH EVERY DAY NEEDED FOR CONSTIPATION sertraline 100 mg tablet 100 mg PO QDAY Patient Comments: TAKE ONE TABLET BY MOUTH EVERY DAY IN THE MORNING diclofenac sodium 1 % gel 2 g TOPICAL QID PRN (Reason: pain) Patient Comments: APPLY ONE - TWO GRAM EXTERNALLY FOUR TIMES DAILY NEEDED FOR PAIN Referrals: Serafin Murphy MD [Primary Care Provider] Patient/Caregiver Discharge Instructions Education Materials: Abdominal Pain, Treating Constipation, Eating a High-Fiber Diet Print Language: Maori Stand Alone Forms: Tasha Award Info., Patient Portal Info Letter Discharge Order Discharge Orders: Discharge (Routine); Ordered 09/01/25 Ordered By: Amrita Ritchie Quality Discharge Quality Measures VTE prophylaxis
[2025-09-01 12:00] VITALS: BP 135/62; PULSE 62; PULSE 63; RESP 14; TEMP 36.8; O2SAT 96
--- NOTE | 2025-09-01 12:32 | PC.NURSE ---
Dr. Ritchie confirms pt. is okay to discharge.
[2025-09-01 14:00] VITALS: BP 149/81; PULSE 64; RESP 16; TEMP 36.6; O2SAT 96
== END 2025-09-01 14:00 | disposition home or self-care (01) | DRG 249 ==
LOC: SERX 21:24 → SERHOLD 22:40 → S3SX 08-30 00:01
PROVIDERS: Admitting Provider Internal Medicine; Emergency Provider Emergency Medicine; PCP Family Medicine; Visit Provider Internal Medicine
DX: R11.2 Nausea with vomiting, unspecified (principal); I11.0 Hypertensive heart disease with heart failure; I50.42 Chronic combined systolic (congestive) and diastolic (congestive) heart failure; J44.9 Chronic obstructive pulmonary disease, unspecified; F41.9 Anxiety disorder, unspecified; F31.9 Bipolar disorder, unspecified; I31.39 Other pericardial effusion (noninflammatory); E11.9 Type 2 diabetes mellitus without complications; Z66 Do not resuscitate; Z79.82 Long term (current) use of aspirin; Z90.710 Acquired absence of both cervix and uterus; Z98.51 Tubal ligation status; Z88.8 Allergy status to other drugs, medicaments and biological substances
CPT/HCPCS: 36415; 71045; 74018; 74177; 74250; 76856; 80053; 83036; 83605; 83735; 84100; 84145; 84484; 85025; 93005; 93225; 93306; 94664; 96361; 96374; 96375; 99284; A4649; J0131; J1920; J2250; J2270; J2470; J2765; J3480; J7030; Q9963; Q9967; A9270